=== PATIENT | male | born 1955 | race Two or more races ===

== ENCOUNTER 2019-12-10 23:00 | Inpatient (IN) | payer MEDICAID ==
[~2019-12-10] VITALS: Ht 182.9 cm; Wt 48.5 kg
--- NOTE | 2019-12-10 23:00 | NUR ---
[id number] FROM [facility] C/O ALTERED MENTAL STATUS RECENTLY TESTED NEG FOR COVID 11/28/19; PT TO BED 4, PT ALERT, ANSWERS TO NAME, -SOB, VSS. PENDING ER PROVIDER LISA
--- NOTE | 2019-12-10 23:15 | NUR ---
PT WITH F/C FROM FACILITY. COLLECTED URINE, SENT TO LAB
[2019-12-10] MEDS ORDERED: IV NS 0.9% 500 ML BAG IV ONE (23:30)
[2019-12-10 23:33] LABS: BASOPHILS % (AUTO) 0.1 % (0.0-2.0); EOSINOPHILS % (AUTO) 0.3 % (0.0-6.0); HEMATOCRIT 34 % (39-51); HEMOGLOBIN 10.5 g/dL (13.5-17.5); LYMPHOCYTES # (AUTO) 2.3 /CMM (0.8-4.8); LYMPHOCYTES % (AUTO) 15.4 % (20.0-44.0); MEAN CORPUSCULAR HGB CONC 31 g/dl (31.0-36.0); MEAN CORPUSCULAR VOLUME 93 fL (80-96); MONOCYTES % (AUTO) 6.9 % (2.0-12.0); NEUTROPHILS # (AUTO) 11.4 /CMM (1.8-8.9); NEUTROPHILS % (AUTO) 77.3 % (43.0-81.0); PLATELET COUNT (AUTO) 123 /CMM (150-450); RED BLOOD CELL COUNT(AUTO) 3.61 MIL/uL (4.5-6.0); WHITE BLOOD COUNT (AUTO) 14.8 K/uL (4.3-11.0)
[2019-12-10 23:42] LABS: APPEARANCE,URINE Slightly Cloudy (CLEAR); BILIRUBIN,URINE Negative (NEGATIVE); BLOOD, URINE Large Ery/uL (NEGATIVE); COLOR,URINE Yellow (YELLOW); KETONES,URINE Negative (NEGATIVE); LEUKOCYTE ESTERASE ,URINE Small (NEGATIVE); NITRITE, URINE Positive (NEGATIVE); PROTEIN,URINE 100 mg/dl (NEGATIVE); UGLUCOSE Negative (NEGATIVE); UROBILINOGEN,URINE 0.2 EU/dL (0.2)
[2019-12-10 23:55] LABS: BACTERIA,URINE 3+ /HPF (None Seen); RBC,URINE 21-50 /HPF (0-2); SQUAMOUS EPITHELIAL CELL,UR Few /HPF (None Seen)
[2019-12-10 23:58] LABS: ALANINE AMINOTRANSFERASE 21 U/L (12-78); ALBUMIN 2.5 g/dL (3.4-5.0); ALKALINE PHOSPHATASE 70 U/L (46-116); ASPARTATE AMINOTRANSFERASE 25 U/L (15-37); B-TYPE NATRIURETIC PEPTIDE 480 PG/ML (0-125); BILIRUBIN,DIRECT 0.1 mg/dL (0.0-0.2); BILIRUBIN,TOTAL 0.4 mg/dL (0.2-1.0); CARBON DIOXIDE 25 mmol/L (21-32); CREATININE 2.8 mg/dL (0.6-1.3); GLUCOSE 113 mg/dL (74-106); TOTAL PROTEIN, SERUM 9.4 g/dL (6.4-8.2)
[2019-12-11] LABS: CALCIUM, SERUM 9.5 mg/dL (8.5-10.1)
[2019-12-11] MEDS ORDERED: VANCOMYCIN 1 GM in IV D5W 250 ML IV ONE ×2
[2019-12-11] MEDS ORDERED: IV NS 0.9% 1,000 ML IV ONE
[2019-12-11] MEDS ORDERED: PIPERACILLIN /TAZOBACTAM 3.375 G in IV D5W 50 ML IV ONE ×2
[2019-12-11 00:01] LABS: CHLORIDE 126 mmol/L (98-107); SODIUM SERUM 164 mmol/L (136-145); UREA NITROGEN, BLOOD 100 mg/dL (7-18)
[2019-12-11] MEDS ORDERED: PIPERACILLIN /TAZOBACTAM 3.375 G VIAL IV ONE (00:38)
[2019-12-11] MEDS ORDERED: VANCOMYCIN 1 GM VIAL ONE (00:38)
[2019-12-11] MEDS ORDERED: PANT40TA2 GT (01:33)
[2019-12-11] MEDS ORDERED: ASCO-352 GT (01:33)
[2019-12-11] MEDS ORDERED: LACT-96 GT (01:33)
[2019-12-11] MEDS ORDERED: CARV12.52 GT (01:33)
[2019-12-11] MEDS ORDERED: VALP250S22 GT (01:33)
[2019-12-11] MEDS ORDERED: LOSA50TA39 GT (01:33)
[2019-12-11] MEDS ORDERED: ONDA4TAB5 GT (01:33)
[2019-12-11] MEDS ORDERED: HALO2TAB2 GT (01:33)
[2019-12-11] MEDS ORDERED: MULT9LIQ6 GT (01:33)
--- NOTE | 2019-12-11 02:00 | NUR ---
REPEAT LACTIC RESCHED, PT WAS BENDING ARM; ALL FLUIDS NOT YET ADMINISTERED
[2019-12-11 02:15] VITALS: BP 108/73
--- NOTE | 2019-12-11 02:15 | NUR ---
REPORT GIVEN TO FREDI NORIEGA FOR CARLITA; PT WILL BE TRANSPORTED TO ICU/[facility]
--- NOTE | 2019-12-11 02:15 | NUR ---
OIL HEATERMAN NOTE PATIENT ARRIVED TO UNIT AROUND THIS TIME VIA [employer]. AWAKE, ALERT, CONFUSED, ANXIOUS, NON-VERBAL. BREATHING IS EVEN AND NON LABORED, ON ROOM AIR, SATURATION IS 100%, NO SOB NOTED AT THIS TIME. ON ISOLATION FOR R/O COVID. IV SITE ON LAC GAUGE 20 IS CLEAN, DRY, AND PATENT. ON PACK CATH, URINE IS CLOUDY, EMANI IN COLOR, CONTAINS SEDIMENTS. NOTED SACRAL PRESSURE ULCER. CLEANSED WOUND WITH NS, PAT DRY, AND COVER WITH MEPILEX. NOTED DISCOLORATION ON RIGHT HEEL. BILATERAL HEELS OFFLOADED WITH PILLOWS. NOTED PATIENT WITH SMALL BM UPON INITIAL ASSESSMENT. PEG IS PATENT AND CLAMPED AT THIS TIME. PATIENT IS CONTRACTED ON BLE. VITALS WNL AT THIS TIME. WILL CONTINUE TO MONITOR.
--- NOTE | 2019-12-11 02:22 | NUR ---
PT TRANSPORTED TO [facility]
[2019-12-11] MEDS ORDERED: IV D5/0.45 NACL 1,000 ML IV PRN (03:18)
[2019-12-11] MEDS ORDERED: ONDANSETRON HCL/PF 4 MG/2 ML VIAL IVP PRN (03:30)
[2019-12-11] MEDS ORDERED: Z GUARD REMEDY 2 OZ OINT TP PRN (03:30)
[2019-12-11] MEDS ORDERED: HYDROCODONE/APAP 5/325MG TABLET PO PRN (03:30)
[2019-12-11] MEDS ORDERED: ACETAMINOPHEN 325 MG TABLET PO PRN (03:30)
[2019-12-11] MEDS ORDERED: ZOLPIDEM TARTRATE 5 MG TABLET PO PRN (03:30)
[2019-12-11 04:00] VITALS: BP 109/67
[2019-12-11 04:25] LABS: BASOPHILS % (AUTO) 0.1 % (0.0-2.0); EOSINOPHILS % (AUTO) 0.3 % (0.0-6.0); HEMATOCRIT 30 % (39-51); HEMOGLOBIN 9.4 g/dL (13.5-17.5); LYMPHOCYTES # (AUTO) 1.8 /CMM (0.8-4.8); LYMPHOCYTES % (AUTO) 18.7 % (20.0-44.0); MEAN CORPUSCULAR HGB CONC 31 g/dl (31.0-36.0); MEAN CORPUSCULAR VOLUME 94 fL (80-96); MONOCYTES # (AUTO) 0.7 /CMM (0.1-1.30); MONOCYTES % (AUTO) 7.6 % (2.0-12.0); NEUTROPHILS # (AUTO) 6.8 /CMM (1.8-8.9); NEUTROPHILS % (AUTO) 73.3 % (43.0-81.0); PLATELET COUNT (AUTO) 86 /CMM (150-450); RED BLOOD CELL COUNT(AUTO) 3.24 MIL/uL (4.5-6.0); WHITE BLOOD COUNT (AUTO) 9.3 K/uL (4.3-11.0)
[2019-12-11 04:45] LABS: ALBUMIN 2.2 g/dL (3.4-5.0); BILIRUBIN,TOTAL 0.4 mg/dL (0.2-1.0); CALCIUM, SERUM 8.9 mg/dL (8.5-10.1); CREATININE 2.4 mg/dL (0.6-1.3); MAGNESIUM 2.5 mg/dL (1.8-2.4); PHOSPHORUS 2.9 mg/dL (2.5-4.9); POTASSIUM 3.8 mmol/L (3.5-5.1); THYROID STIMULATING HORMONE 0.879 uIU/mL (0.358-3.74)
[2019-12-11 05:28] LABS: EOSINOPHILS % (MANUAL) 1 % (0-4); LYMPHOCYTES % (MANUAL) 13 % (16-48); MONOCYTES % (MANUAL) 3 % (0-11.0); NEUTROPHILS % (MANUAL) 83 (42-76)
[2019-12-11] MEDS ORDERED: JEVITY 1.2 CAL 1,000 ML BOTTLE GT PRN (05:30)
--- NOTE | 2019-12-11 07:23 | NUR ---
SAMPLE PULLER NOTE PATIENT REMAINED STABLE THROUGHOUT THE NIGHT. NO SIGNIFICANT CHANGES NOTED. PATIENT TRIED TO GET OUT OF BED. SAFETY PRECAUTIONS IMPLEMENTED. SOFT WRIST RESTRAINTS OBTAINED. BED ALARM TURNED ON. PATIENT IS KEPT CLEAN, DRY, AND COMFORTABLE. ENDORSED TO AM SHIFT RN FOR CONTINUATION OF CARE.
[2019-12-11 08:00] VITALS: BP 99/56
[2019-12-11] MEDS: PANTOPRAZOLE 40 MG TABLET.DR PO SCH (08:04)
[2019-12-11] MEDS: ASCORBIC ACID 500 MG TABLET GT SCH (08:06)
[2019-12-11] MEDS: CARVEDILOL 12.5 MG TABLET GT SCH ×2 (08:06→17:00)
[2019-12-11 08:11] LABS: IRON, SERUM 25 ug/dl (50-175); TOTAL IRON BINDING CAPACITY 120 ug/dl (250-450)
--- NOTE | 2019-12-11 08:25 | NUR ---
WOUND CARE CONSULT: REVIEWED CHART, NURSING DOCUMENTATION AND PHOTOS WHICH INDICATE FULL THICKNESS SACRAL ULCER AND RT FOOT INTACT DEEP TISSUE INJURY, PRESENT ON ADMISSION, RECOMMEND SURGICAL AND DPM CONSULTS. DR WASHINGTON AND DR TAMAYO NOTIFIED OF CONSULT REQUEST. RECOMMENDATIONS MADE FOR SKIN PROTECTION. DISCUSSED WITH NURSING STAFF. PT IS ON [place] ISOFLEX LOW AIRLOSS BED. MD IN AGREEMENT WITH PLAN OF CARE.
[2019-12-11 08:30] LABS: FERRITIN 847 ng/mL (8-388)
[2019-12-11] MEDS ORDERED: LOSARTAN POTASSIUM 50 MG TABLET GT SCH (09:00)
--- NOTE | 2019-12-11 09:39 | NUR ---
RN OPENING NOTES: RECEIVED PT IN BED AWAKE A/OX2, CONFUSED, CAN GET AGITATED WHEN IN PAIN. PT ON RA TOLERATING WELL. PT ON PACK NORMAL U/O, GTUBE FEEDING 20 GOAL IS 50 WILL INCREASE I GO. SAFETY MEASURES MAINTAINED CALL LIGHT WITHIN REACH WILL CONTINUE TO MONITOR.
[2019-12-11] MEDS: IV NS 0.9% 1,000 ML IV PRN ×2 (09:51→20:37)
[2019-12-11] MEDS: PIPERACILLIN /TAZOBACTAM 3.375 G in IV D5W 100 ML IV SCH ×2 (09:57→16:58)
[2019-12-11 12:00] VITALS: BP 98/53
[2019-12-11 13:45] LABS: CALCIUM, SERUM 8.7 mg/dL (8.5-10.1); POTASSIUM 3.6 mmol/L (3.5-5.1)
--- NOTE | 2019-12-11 13:55 | NUR ---
RN NOTES; PT WAS TAKEN TO CT SCAN, TOLERATED WELL, NO CHANGES IN VITALS DURING THE PROCEDURE. WILL CONTINUE TO MONITOR.
--- NOTE | 2019-12-11 13:58 | NUR ---
RN NOTES: LAB CALLED FOR CRITICAL VALUES FOR SODIUM 161, CHLORIDE 126, BASED ON THE LAB VALUES FROM YESTR[facility]AY NUMBERS ARE TRENDING DOWN.
[2019-12-11 16:00] VITALS: BP 105/53
[2019-12-11] MEDS: HYDROGEL DRESSING 90 GM TUBE TP SCH (18:50)
--- NOTE | 2019-12-11 18:55 | NUR ---
RN CLOSING NOTES: PT IN BED SLEEPING, NO ACUTE CHANGES DURING THE SHIFT. PTS BLOOD PRESSURE WAS LOW BP MEDICATION WAS NOT GIVEN. NO SIGNS OF RESPIRATORY DISTRESS, DIFFICULTY BREATHING OR PAIN. IV INTACT FLUSHED WELL. WAS ON RA ALL DAY CHANGED TO NC 2L AT 1800 O2 WAS GOING LOW. PACK CATH WAS CHANGED TO A NEW ONE. PATIENTS SAFETY MEASURES MAINTAINED CALL LIGHT WITHIN REACH WILL ENDORSE TO PM SHIFT NURSE.
--- NOTE | 2019-12-11 19:10 | NUR ---
RN OPENING NOTE RECEIVED PATIENT IN BED SLEEPING,ALERT DISORIENTED,NONVERBAL FULL CODE ON TELE MONITORING R/O FOR COVID STILL PENDING,ON DROPLET/CONTACT ISOLATION,ON 2L NASAL CANNULA, 100% HR SR 61 IV SITE IS ON LEFT AC INTACT PATENT,200CC/HR NS RUNNING,ON G-TUBE FEEDING JEVITY 1.2 30CC/HR GOAL IS 50CC/HR PLACEMENT DONE NO RESIDUAL,ON PACK CATHETER, URINE DRAINING YELLOW CLEAR,ON RESTRAIN BILATERAL WRIST,HEAD OF BED ELEVATED ALL THE TIME,IMPLEMENT SAFETY MEASURE,CONTINUE TO MONITOR
[2019-12-11 20:00] VITALS: BP 100/59
[2019-12-11] MEDS: VALPROIC ACID 250 MG/5 ML UDC GT SCH (21:19)
[2019-12-12] VITALS: BP 130/70
[2019-12-12] MEDS: PIPERACILLIN /TAZOBACTAM 3.375 G in IV D5W 100 ML IV SCH ×3 (00:34→17:47)
[2019-12-12] MEDS ORDERED: VANCOMYCIN 0.75 GM in IV D5W 250 ML IV SCH (01:00)
[2019-12-12] MEDS: IV NS 0.9% 1,000 ML IV PRN ×4 (02:47→21:02)
--- NOTE | 2019-12-12 03:00 | NUR ---
RN NOTE G-TUBE FEEDING RATE INCREASED FROM 30CC/HR TO 35CC/HR TOLERATED THE GOAL IS 50CC/HR CONTINUE TO MONITOR.
[2019-12-12 04:00] VITALS: BP 106/68
[2019-12-12 04:36] LABS: BASOPHILS % (AUTO) 0.1 % (0.0-2.0); EOSINOPHILS % (AUTO) 1.6 % (0.0-6.0); HEMATOCRIT 25 % (39-51); HEMOGLOBIN 7.8 g/dL (13.5-17.5); LYMPHOCYTES # (AUTO) 1.4 /CMM (0.8-4.8); LYMPHOCYTES % (AUTO) 23.2 % (20.0-44.0); MEAN CORPUSCULAR HGB CONC 32 g/dl (31.0-36.0); MEAN CORPUSCULAR VOLUME 93 fL (80-96); MONOCYTES # (AUTO) 0.5 /CMM (0.1-1.30); NEUTROPHILS % (AUTO) 67.1 % (43.0-81.0); PLATELET COUNT (AUTO) 52 /CMM (150-450); RED BLOOD CELL COUNT(AUTO) 2.64 MIL/uL (4.5-6.0)
[2019-12-12 05:08] LABS: ALBUMIN 1.9 g/dL (3.4-5.0); BILIRUBIN,TOTAL 0.3 mg/dL (0.2-1.0); CALCIUM, SERUM 8.3 mg/dL (8.5-10.1); CREATININE 1.8 mg/dL (0.6-1.3); PHOSPHORUS 2.3 mg/dL (2.5-4.9); POTASSIUM 3.9 mmol/L (3.5-5.1); TOTAL PROTEIN, SERUM 6.9 g/dL (6.4-8.2)
[2019-12-12 05:26] LABS: BAND % (MANUAL) 2 % (0.0-5.0); EOSINOPHILS % (MANUAL) 1 % (0-4); LYMPHOCYTES % (MANUAL) 34 % (16-48); MONOCYTES % (MANUAL) 1 % (0-11.0); NEUTROPHILS % (MANUAL) 62 (42-76)
--- NOTE | 2019-12-12 05:27 | NUR ---
RN NOTE REPORTED BY LAB PATIENT SODIUM IS 164 CRITICAL,THIS IS EXPECTED PATIENT 12/10/19 WAS 164 AND AT 12/11/19 AT 1200 WAS 165,CONTINUE TO MONITOR
--- NOTE | 2019-12-12 06:53 | NUR ---
RN CLOSING NOTE PATIENT REMAINS ALERT DISORIENTED,CONFUSED,FULL CODE,ON TELE,R/O FOR COVID STILL PENDING,ON DROPLET/CONTACT ISOLATION,ON 2L/MIN OXYGEN VIA NASAL CANNULA O2:100%,ON G-TUBE FEEDING,JEVITY 1.2 35CC/HR AND GOAL IS 50CC/HR.NO RESIDUAL,IV SITE IS ON LEFT AC PATENT,INTACT, 200 CC/HR NS RUNNING,ON PACK CATHETER,URINE DRAINING YELLOW CLEAR,HEAD OF BED ELEVATED,NO SOB NOT ACUTE DISTRESS NOTED,ON RESTRAIN BILATERAL WRIST,ALL DUE MEDS GIVEN MD ORDERED,KEPT CLEAN AND DRY ALL THE TIME,ALL NEEDS MET,ENDORSE NEXT COMING SHIFT FOR CONTINUATION OF CARE.
--- NOTE | 2019-12-12 07:00 | NUR ---
RECEIVABLE MANAGER OPENING RECEIVED PT ASLEEP BUT EASILY AROUSABLE. A/O X 0. NC 2L WITH 100% SATURATION AT THIS TIME. NO SIGNS OF ACUTE RESPIRATORY DISTRESS. NO PAIN. WITH PACK CATH DRAINING INTO YELLOWISH URINE. ON JEVITY 1.2 30CC/HR TOLERATING WELL. PT HAS MINIMAL RESIDUAL. PT HAS SACRAL WOUND STAGE 4. MEPILEX PLACED, REPOSITION AND TURNED Q2. LEFT AC # 20, PATENT AND FLUSHED. NS 200ML/HR. BED LOCKED LOWEST POSITION, CALL LIGHT WITHIN REACH. ALL SAFETY MEASURES IMPLEMENTED. 2X RAILS UP
[2019-12-12 08:00] VITALS: BP 97/53
[2019-12-12] MEDS: CARVEDILOL 12.5 MG TABLET GT SCH ×2 (08:18→16:09)
[2019-12-12] MEDS: ASCORBIC ACID 500 MG TABLET GT SCH (08:19)
[2019-12-12] MEDS: PANTOPRAZOLE 40 MG TABLET.DR PO SCH (08:19)
[2019-12-12] MEDS: HYDROGEL DRESSING 90 GM TUBE TP SCH (10:58)
--- NOTE | 2019-12-12 11:00 | NUR ---
POLO COACH STOOL SAMPLE/URINE COLLECTED. SENT TO LAB
[2019-12-12 11:04] LABS: APPEARANCE,URINE CLOUDY (CLEAR); BILIRUBIN,URINE NEGATIVE (NEGATIVE); BLOOD, URINE LARGE Ery/uL (NEGATIVE); COLOR,URINE YELLOW (YELLOW); KETONES,URINE NEGATIVE (NEGATIVE); LEUKOCYTE ESTERASE ,URINE SMALL (NEGATIVE); NITRITE, URINE NEGATIVE (NEGATIVE); PH,URINE 5.5 (5.0-8.0); PROTEIN,URINE TRACE mg/dl (NEGATIVE); UGLUCOSE NEGATIVE (NEGATIVE); UROBILINOGEN,URINE 0.2 EU/dL (0.2)
[2019-12-12 11:14] LABS: CREATININE, URINE 55.4 MG/DL (30.0-125.0); URINE TOTAL PROTEIN 72.6 mg/dL (0-11.9)
[2019-12-12 11:54] LABS: BACTERIA,URINE Few /HPF (None Seen); MUCUS,URINE Few /LPF (None Seen); SQUAMOUS EPITHELIAL CELL,UR Few /HPF (None Seen); URIC ACID CRYSTALS,URINE Few /HPF (None Seen); YEAST,URINE None Seen /HPF (None Seen)
[2019-12-12 11:57] LABS: OCCULT BLOOD STOOL POSITIVE (NEGATIVE)
[2019-12-12 12:00] VITALS: BP 117/83
[2019-12-12] MEDS ORDERED: NEUTRA PHOS 1 POWD.PACKET GT ONE (12:00)
[2019-12-12 12:05] LABS: D-DIMER 3.45 mg/L(FEU (0.17-0.50)
[2019-12-12 12:26] LABS: EOSINOPHIL,URINE None Seen
[2019-12-12] MEDS: JEVITY 1.2 CAL 1,000 ML BOTTLE GT PRN (15:55)
[2019-12-12 16:00] VITALS: BP 117/83
--- NOTE | 2019-12-12 16:00 | NUR ---
CHIN STRAP SEWER COREG NOT GIVE DUE TO BP. 88/50 HR 77.
--- NOTE | 2019-12-12 18:00 | NUR ---
SPEECH THERAPY TEACHER COVID RESULTS PENDING TILL NEXT WEEK
--- NOTE | 2019-12-12 18:15 | NUR ---
HAND BINDER STRIPPER RADIOLOGIST TALKED TO MD FOR SURGERY CONSULT
--- NOTE | 2019-12-12 18:29 | NUR ---
LABORER DRIVER CLOSING NOTES NO SIGNIFICANT CHANGES AT THIS TIME. PT REMAINS STABLE. NO ACUTE RESPIRATORY DISTRESS. WILL ENDORSE TO ONCOMING SHIFT FOR CARLITA
[2019-12-12 18:32] LABS: HEMOGLOBIN 7.3 g/dL (13.5-17.5)
[2019-12-12] MEDS ORDERED: MEROPENEM 500 MG in IV NS 0.9% 50 ML IV ONE (19:00)
--- NOTE | 2019-12-12 19:00 | NUR ---
RN OPENING NOTE RECEIVED PATIENT IN BED RESTING,CONFUSED,DISORIENTED,OPEN EYES ON TELE,FULL CODE R/O FOR COVID STILL PENDING,MONITORING DROPLET/CONTACT ISOLATION,ON 2L OXYGEN VIA NASAL CANNULA, O2:100% IV SITE IS ON LEFT AC INTACT PATENT ON IV HYDRATION 200CC/HR NORMAL SALINE,ON G-TUBE FEEDING, JEVITY 1.2 45 CC/HR, PLACEMENT DONE,NO RESIDUAL,ON PACK CHERY,URINE DRAINING YELLOW/CLEAR,IMPLEMENT SAFETY MEASURE,HEAD OF BED ELEVATED,CONTINUE TO MONITOR.
--- NOTE | 2019-12-12 19:12 | NUR ---
RN NOTE REPORTED BY LAB LACTIC ACID 2.3 IS HIGH COMPARE THE DAY BEFORE IT WAS 3.8 DECREASED,CONTINUE TO MONITOR.
[2019-12-12 20:00] VITALS: BP 107/67
[2019-12-12] MEDS: DOXYCYCLINE HYCLATE (100 MG) 100 MG TABLET PO SCH (20:26)
[2019-12-12] MEDS: VALPROIC ACID 250 MG/5 ML UDC GT SCH (21:04)
[2019-12-12 21:38] LABS: BILIRUBIN,DIRECT 0.1 mg/dL (0.0-0.2)
[2019-12-13] VITALS: BP 102/62
[2019-12-13] MEDS: IV NS 0.9% 1,000 ML IV PRN ×3 (02:16→08:08)
[2019-12-13 04:00] VITALS: BP 103/56
[2019-12-13 04:59] LABS: BASOPHILS % (AUTO) 0.1 % (0.0-2.0); EOSINOPHILS % (AUTO) 2.7 % (0.0-6.0); HEMATOCRIT 22 % (39-51); HEMOGLOBIN 7.1 g/dL (13.5-17.5); LYMPHOCYTES # (AUTO) 1.1 /CMM (0.8-4.8); LYMPHOCYTES % (AUTO) 28.9 % (20.0-44.0); MEAN CORPUSCULAR HGB CONC 32 g/dl (31.0-36.0); MEAN CORPUSCULAR VOLUME 92 fL (80-96); MONOCYTES # (AUTO) 0.3 /CMM (0.1-1.30); MONOCYTES % (AUTO) 7.5 % (2.0-12.0); NEUTROPHILS # (AUTO) 2.2 /CMM (1.8-8.9); NEUTROPHILS % (AUTO) 60.8 % (43.0-81.0); RED BLOOD CELL COUNT(AUTO) 2.41 MIL/uL (4.5-6.0); WHITE BLOOD COUNT (AUTO) 3.7 K/uL (4.3-11.0)
--- NOTE | 2019-12-13 05:00 | NUR ---
RN NOTE RECEIVED CALLED FROM LAB WITH CRITICAL LAB VALUE PLATETE 40L WHICH IS EXPECTED GETTING NS 200CC/HR CONTINUE TO MONITOR
[2019-12-13 05:21] LABS: CALCIUM, SERUM 7.8 mg/dL (8.5-10.1); POTASSIUM 3.2 mmol/L (3.5-5.1)
[2019-12-13 05:27] LABS: PLATELET COUNT (AUTO) 40 /CMM (150-450)
[2019-12-13 05:58] LABS: CREATININE 1.4 mg/dL (0.6-1.3)
--- NOTE | 2019-12-13 06:02 | NUR ---
RN NOTE RECEIVED A CALL FROM LAB WITH CRITICAL LAB VALUE SODIUM 158 COMPARER THE DAY BEFORE 164 IMPROVING AND DECREASED CONTINUE TO MONITOR
[2019-12-13 06:38] LABS: BAND % (MANUAL) 2 % (0.0-5.0); EOSINOPHILS % (MANUAL) 4 % (0-4); LYMPHOCYTES % (MANUAL) 32 % (16-48); MONOCYTES % (MANUAL) 3 % (0-11.0); NEUTROPHILS % (MANUAL) 59 (42-76)
--- NOTE | 2019-12-13 07:00 | NUR ---
EGG GATHERER OPENING RECEIVED PT ASLEEP BUT EASILY AROUSABLE . A/O X 0. NC 2L WITH 100% SATURATION AT THIS TIME. NO SIGNS OF ACUTE RESPIRATORY DISTRESS. NO PAIN. WITH PACK CATH DRAINING INTO YELLOWISH URINE, . ON JEVITY 1.2 45CC/HR TOLERATING WELL. PT HAS MINIMAL RESIDUAL. PT HAS SACRAL WOUND STAGE 4. MEPILEX PLACED, REPOSITION AND TURNED Q2. LEFT AC # 20, PATENT AND FLUSHED. NS 200ML/HR. BED LOCKED LOWEST POSITION, CALL LIGHT WITHIN REACH. ALL SAFETY MEASURES IMPLEMENTED. 2X RAILS UP
--- NOTE | 2019-12-13 07:12 | NUR ---
RN CLOSING NOTE PATIENT REMAINS ALERT CONFUSED,R/O FOR COVID,FULL CODE,MONITORING FOR DROPLET/CONTACT ISOLATION,NO SOB NOT ACUTE DISTRESS NOTE,ON 2L OXYGEN O2:100% ON G-TUBE FEEDING JEVITY 1.2 45CC/HR NO RESIDUAL,IV SITE IS ON LEFT AC INTACT,PATENT,200CC/HR NORMAL SALINE,ALL DUE MEDS GIVEN MD ORDERED,HEAD OF BED ELEVATED,IMPLEMENTED SAFETY MEASURE, ENDORSE NEXT SHIFT FOR CONTINUATION OF CARE.
[2019-12-13 08:00] VITALS: BP 100/64
[2019-12-13] MEDS: MEROPENEM 500 MG in IV NS 0.9% 100 ML IV SCH ×2 (08:07→19:53)
[2019-12-13] MEDS: PANTOPRAZOLE 40 MG TABLET.DR PO SCH (08:40)
[2019-12-13] MEDS: ASCORBIC ACID 500 MG TABLET GT SCH (08:41)
[2019-12-13] MEDS: CARVEDILOL 12.5 MG TABLET GT SCH ×2 (08:41→18:15)
[2019-12-13] MEDS: DOXYCYCLINE HYCLATE (100 MG) 100 MG TABLET PO SCH ×2 (08:41→21:12)
[2019-12-13] MEDS: HYDROGEL DRESSING 90 GM TUBE TP SCH (08:42)
[2019-12-13] MEDS ORDERED: POTASSIUM PHOSPHATE MM 15 MMOL in IV NS 0.9% 250 ML IV SCH (09:30)
[2019-12-13] MEDS ORDERED: POTASSIUM CHLORIDE 20 MEQ POWDER PACKET NG SCH (10:00)
[2019-12-13] MEDS ORDERED: DIATR MEGLU/DIATRIZOATE SODIUM 30 ML BOTTLE (GASTROGRAPHIN) ONE (10:50)
[2019-12-13] MEDS: POTASSIUM PHOSPHATE MM 7.5 MMOL in IV NS 0.9% 100 ML IV SCH ×2 (10:51→13:44)
[2019-12-13 11:06] LABS: PTH, INTACT 29 pg/mL (15-65)
[2019-12-13 12:00] VITALS: BP 117/62
[2019-12-13] MEDS: IV 1/2NS 1000 ML 1,000 ML IV PRN (13:42)
[2019-12-13 16:00] VITALS: BP 143/83
[2019-12-13] MEDS ORDERED: ACETAMINOPHEN 325 MG TABLET PO PRN (18:00)
[2019-12-13] MEDS ORDERED: PHYTONADIONE INJ 10 MG/1 ML AMPUL SQ ONE (18:00)
[2019-12-13] MEDS ORDERED: diphenhydrAMINE HCL 50 MG/ML VIAL IV PRN (18:00)
--- NOTE | 2019-12-13 18:00 | NUR ---
IOS ARCHITECT TALKED TO DR APONTE - BLOOD PRODUCT ORDERS PENDING NEED CONSENT UNABLE TO REACH FAMILY AT THIS TIME .
--- NOTE | 2019-12-13 18:35 | NUR ---
CANCER CENTER DIRECTOR OPENING RECEIVED PT ASLEEP BUT EASILY AROUSABLE . A/O X 0. NC 2L WITH 100% SATURATION AT THIS TIME. NO SIGNS OF ACUTE RESPIRATORY DISTRESS. NO PAIN. WITH PACK CATH DRAINING INTO YELLOWISH URINE, . ON JEVITY 1.2 45CC/HR TOLERATING WELL. PT HAS MINIMAL RESIDUAL. PT HAS SACRAL WOUND STAGE 4. MEPILEX PLACED, REPOSITION AND TURNED Q2. LEFT AC # 20, PATENT AND FLUSHED. NS 200ML/HR. BED LOCKED LOWEST POSITION, CALL LIGHT WITHIN REACH. ALL SAFETY MEASURES IMPLEMENTED. 2X RAILS UP Addendum: 12/13/19 at 1838 by MALATHI KENYON RN WRONG TIME
--- NOTE | 2019-12-13 18:37 | NUR ---
SHOULDER PUNCHER CLOSING RECEIVED PT ASLEEP BUT EASILY AROUSABLE . A/O X 0. NC 2L WITH 100% SATURATION AT THIS TIME. NO SIGNS OF ACUTE RESPIRATORY DISTRESS. NO PAIN. WITH PACK CATH DRAINING INTO YELLOWISH URINE, PATIENT WAS KICKICK HIS PACK AND PULLED ON IT. BLOOD CLOTS IN THE PACK. ON JEVITY 1.2 45CC/HR TOLERATING WELL. PT HAS MINIMAL RESIDUAL. PT HAS SACRAL WOUND STAGE 4. MEPILEX PLACED, REPOSITION AND TURNED Q2. LEFT AC # 20, PATENT AND FLUSHED. NS 1/2 75ML/HR. BED LOCKED LOWEST POSITION, CALL LIGHT WITHIN REACH. ALL SAFETY MEASURES IMPLEMENTED. 2X RAILS UP
[2019-12-13 19:01] LABS: HEMOGLOBIN 7.6 g/dL (13.5-17.5)
--- NOTE | 2019-12-13 19:10 | NUR ---
RN CLOSING NOTE RECEIVED PATIENT IN BED OPEN EYES ALERT CONFUSED,FULLCODE,R/O FOR COVID STILL PENDING MONITORING FOR DROPLET/CONTACT ISOLATION,ON 2L OXYGEN O2:100% NO SOB NOT ACUTE DISTRESS NOTED,IV SITE IS ON LEFT AC INTACT PATENT 75CC/HR NORMAL SALINE RUNNING,ON PACK CATHETER,BLOOD CLOT IN PACK TUBE BECAUSE PATIENT KICKED,ON G-TUBE FEEDING PLACEMENT DONE NO RESIDUAL,JEVITY 1.2 45CC/HR HEAD OF BED ELEVATED,IMPLEMENT SAFETY MEASURE,CONTINUE TO MONITOR, Addendum: 12/13/19 at 2108 by CHENG MCGHEE RN IV 1/2 NS NORMAL SALINE 75CC/HR.
[2019-12-13] MEDS: JEVITY 1.2 CAL 1,000 ML BOTTLE GT PRN (19:39)
[2019-12-13 20:00] VITALS: BP 114/56
[2019-12-13] MEDS: VALPROIC ACID 250 MG/5 ML UDC GT SCH (21:12)
[2019-12-14] VITALS (7 sets, daily range): BP systolic 100–117; BP diastolic 48–73
[2019-12-14 04:33] LABS: BASOPHILS % (AUTO) 0.1 % (0.0-2.0); EOSINOPHILS % (AUTO) 2.4 % (0.0-6.0); HEMATOCRIT 26 % (39-51); HEMOGLOBIN 8.3 g/dL (13.5-17.5); LYMPHOCYTES # (AUTO) 1.5 /CMM (0.8-4.8); MEAN CORPUSCULAR HGB CONC 32 g/dl (31.0-36.0); MEAN CORPUSCULAR VOLUME 91 fL (80-96); MONOCYTES # (AUTO) 0.4 /CMM (0.1-1.30); MONOCYTES % (AUTO) 6.4 % (2.0-12.0); NEUTROPHILS # (AUTO) 3.6 /CMM (1.8-8.9); NEUTROPHILS % (AUTO) 64.1 % (43.0-81.0); RED BLOOD CELL COUNT(AUTO) 2.83 MIL/uL (4.5-6.0); WHITE BLOOD COUNT (AUTO) 5.6 K/uL (4.3-11.0)
[2019-12-14 04:47] LABS: PLATELET COUNT (AUTO) 62 /CMM (150-450)
[2019-12-14 04:52] LABS: BILIRUBIN,TOTAL 0.2 mg/dL (0.2-1.0); CALCIUM, SERUM 8.1 mg/dL (8.5-10.1); CREATININE 1.1 mg/dL (0.6-1.3); MAGNESIUM 1.6 mg/dL (1.8-2.4); PHOSPHORUS 2.4 mg/dL (2.5-4.9); POTASSIUM 3.8 mmol/L (3.5-5.1); TOTAL PROTEIN, SERUM 7.2 g/dL (6.4-8.2)
[2019-12-14] MEDS: IV 1/2NS 1000 ML 1,000 ML IV PRN (06:12)
--- NOTE | 2019-12-14 07:15 | NUR ---
RN OPENING NOTE: Received patient in bed. Awake, alert and confused. Isolation precaution to R/O Covid-[address] On cont o2 via NC @ 2lpm being tolerated well. No SOB and not in respiratory distress. Tele monitor showing sinus rhythm. No pain noted on patient. IV site clean, dry, patent and intact. IV infusion of 1/2 NS @ 75mls/hr running and being tolerated well. Gtube patent and in place, feeding of Jevity 1.2 @ 45mls/hr being tolerated well. Call light in reach. Bed locked, low and at semi-mendoza's position. Side rails up x3. Safety ensured and observed. Will continue to monitor. Addendum: 12/14/19 at 1720 by PATRICIA SILVESTRE RN Nickerson catheter patent and in place, draining duke/yellow urine.
--- NOTE | 2019-12-14 07:33 | NUR ---
RN CLOSING NOTE PATIENT REMAINS ALERT CONFUSED FULL CODE R/O FOR COVID NO SOB NOT ACUTE DISTRESS NOTED ALL DUE MEDS GIVEN MD ORDERED,ON 2L OXYGEN O2:100% G-TUBE FEEDING JEVITY 1.2 45 CC/HR IV SITE IS ON LEFT AC INTACT PATENT 1/2 NS IV HYDRATION RUNNING, 75CC/HR, KEPT CLEAN AND DRY ALL THE TIME,KEPT COMFORTABLE,HEAD OF BED ELEVATED ALL THE TIME,ENDORSE NEXT COMING SHIFT FOR CONTINUATION OF CARE.
[2019-12-14 07:56] LABS: D-DIMER 2.97 mg/L(FEU (0.17-0.50)
[2019-12-14] MEDS: PANTOPRAZOLE 40 MG TABLET.DR PO SCH (08:00)
[2019-12-14] MEDS: ASCORBIC ACID 500 MG TABLET GT SCH (09:59)
[2019-12-14] MEDS: DOXYCYCLINE HYCLATE (100 MG) 100 MG TABLET PO SCH ×2 (09:59→21:16)
[2019-12-14] MEDS: MEROPENEM 500 MG in IV NS 0.9% 100 ML IV SCH ×2 (09:59→19:55)
[2019-12-14] MEDS: CARVEDILOL 12.5 MG TABLET GT SCH ×2 (09:59→16:59)
[2019-12-14] MEDS: HYDROGEL DRESSING 90 GM TUBE TP SCH (10:00)
[2019-12-14] MEDS ORDERED: NEUTRA PHOS 1 POWD.PACKET GT ONE (10:00)
--- NOTE | 2019-12-14 10:00 | NUR ---
RN NOTE: Relayed to Sunny Hobbs about family's request to speak to provider and get an update on his status. Awaiting response
[2019-12-14] MEDS: Magnesium 1GM/D5W 100ML PREMIX 100 ML IV SCH ×2 (11:15→13:53)
--- NOTE | 2019-12-14 18:00 | NUR ---
rn note: Patient transferred to room 313. Endorsement received by FREDI Cabrera
--- NOTE | 2019-12-14 19:17 | NUR ---
CUTTER DOWN NOTES PT ARRIVED IN THE UNIT AT 1830, TRANSFER FORM [facility] VIA BED. VS TAKEN AND STABLE. PT REMAINS IN BED, AWAKE, CONFUSED. PT ON SUPPLEMENTARY OXYGEN AT 2L VIA NC, WITH NO ACUTE RESPIRATORY DISTRESS NOTED. PT NOT EXHIBITING PAIN AT THIS TIME. ON TELEMONITORING SR 80. IVF NS AT 75ML/HR TO LAC, INTACT AND FLUID INFUSING WELL. ALL NEEDS AND CARE ATTENDED. PT KEPT COMFORTABLE IN BED. CALL LIGHT KEPT WITHIN REACH. PT'S BED IN LOWEST, LOCKED POSITION WITH SRX3. WILL ENDORSE TO INCOMING NIGHT NURSE FOR CARLITA.
--- NOTE | 2019-12-14 19:26 | NUR ---
GASTROENTEROLOGY PROFESSOR OPENING NOTES PATIENT RECEIVED RESTING IN BED COMFORTABLY; PATIENT IS CONFUSED; BREATHING EVEN AND UNLABORED; NO SOB NOTED; TOLERATING 2LPM VIA NC WELL; NO DISTRESS NOTED; TELE MONITOR READS SINUS RHYTHM 66BPM; PATIENT HAS GTUBE IN PLACE; PER AM SHIFT, ICU TRANSFERRED PATIENT WITH NO FEEDING PUMP/IV PUMP; MORNING SHIFT SPOKE WITH ICU AND PER ICU, THEY WILL BRING UP THE PUMP AFTER CHANGE OF SHIFT; PATIENT HAS BILATERAL SOFT WRIST RESTRAINTS, NO EVIDENCE OF SKIN BREAK DOWN NOTED; SAFETY PRECAUTIONS IMPLEMENTED; BED LOCKED IN LOW POSITION; SIDE RAILSX2; WILL CONT TO MONITOR
[2019-12-14] MEDS: JEVITY 1.2 CAL 1,000 ML BOTTLE GT PRN (19:56)
--- NOTE | 2019-12-14 20:35 | NUR ---
HEAD GOLF PROFESSIONAL NOTES SPOKE WITH KIYA, FROM LAB REGARDING PLATELET ORDER; PER LAB, PLATELET TRANSFUSION ORDERED 12/12 AND SHOULD HAVE ALREADY BEEN GIVEN IN ICU, AND NO ONE HAS PICKED IT UP; CONFIRMING WITH CHARGE NURSE; WILL TOW BOAT CAPTAIN PLATELET ORDER AND TRANSFUSE ORDERED; WILL CONT TO MONITOR
--- NOTE | 2019-12-14 21:06 | NUR ---
OCCUPATIONAL THERAPY SUPERVISOR NOTES SPOKE WITH DR. DUCKWORTH REGARDING PLATELET TRANSFUSION, PER MD, NO NEED FOR PLATELET TRANSFUSION; CHARGE NURSE AWARE; LAB MADE AWARE; WILL CONT TO MONITOR
[2019-12-14] MEDS: VALPROIC ACID 250 MG/5 ML UDC GT SCH (21:17)
[2019-12-15] VITALS: BP_SYST 106; BP_SYST 147; BP_DIAS 64; BP_DIAS 82
[2019-12-15 04:00] VITALS: BP 108/54
--- NOTE | 2019-12-15 06:45 | NUR ---
LONGITUDINAL FLOAT OPERATOR CLOSING NOTES PATIENT RESTING IN BED COMFORTABLY; A/OX1, CONFUSED BUT OPENS EYES AND RESPONDS TO NAME; BREATHING EVEN AND UNLABORED; TOLERATING 2LPM VIA NC WELL @ 100%; NO SOB NOTED; TELE MONITOR READS SINUS RHYTHM 60 - 70S BPM; BILATERAL SOFT WRIST RESTRAINTS INTACT, NO EVIDENCE OF SKIN BREAKDOWN NOTED; LAC # 24, INTACT AND PATENT, INFUSING NS @ 75ML/HR; TOLERATING IVF WELL; G TUBE INPLACE, FEEDING INFUSING JEVITY 1.2 @ 45ML/HR; PATIENT TOLERATING GTUBE FEEDING WELL, WITH LOW RESIDUALS; PACK INPLACE WITH YELLOW OUT PUT OF 1200 CC THROUGHOUT SHIFT; ALL NEEDS RENDERED; SAFETY PRECAUTIONS IMPLEMENTED; BED LOCKED IN LOW POSITION; SIDE RAILSX3, WILL ENDORSE CARLITA TO ONCOMING SHIFT Addendum: 12/15/19 at 0646 by JESSICA SCHULZ RN R AC #22 INTACT AND PATENT, FLUSHING WELL; NO S/S OF REDNESS OR INFILTRATION NOTED;
--- NOTE | 2019-12-15 07:30 | NUR ---
SOLE CONDITIONER NOTES PT IN BED, ASLEEP, EASY TO AROUSE, NO SIGN OF PAIN OR DISTRESS, GT FEEDING INFUSING WELL, TOLERATING WELL, KEPT WARM AND COMFORTABLE IN BED.
[2019-12-15 08:00] VITALS: BP 98/43
[2019-12-15 08:05] LABS: BASOPHILS % (AUTO) 0.2 % (0.0-2.0); EOSINOPHILS % (AUTO) 2.9 % (0.0-6.0); HEMATOCRIT 23 % (39-51); HEMOGLOBIN 7.5 g/dL (13.5-17.5); LYMPHOCYTES # (AUTO) 1.3 /CMM (0.8-4.8); LYMPHOCYTES % (AUTO) 27.9 % (20.0-44.0); MEAN CORPUSCULAR HGB CONC 33 g/dl (31.0-36.0); MEAN CORPUSCULAR VOLUME 89 fL (80-96); MONOCYTES # (AUTO) 0.3 /CMM (0.1-1.30); MONOCYTES % (AUTO) 5.6 % (2.0-12.0); NEUTROPHILS % (AUTO) 63.4 % (43.0-81.0); PLATELET COUNT (AUTO) 56 /CMM (150-450); RED BLOOD CELL COUNT(AUTO) 2.56 MIL/uL (4.5-6.0); WHITE BLOOD COUNT (AUTO) 4.8 K/uL (4.3-11.0)
[2019-12-15] MEDS: DOXYCYCLINE HYCLATE (100 MG) 100 MG TABLET PO SCH ×2 (08:51→22:49)
[2019-12-15] MEDS: MEROPENEM 500 MG in IV NS 0.9% 100 ML IV SCH ×2 (08:51→20:02)
[2019-12-15] MEDS: ASCORBIC ACID 500 MG TABLET GT SCH (08:51)
[2019-12-15] MEDS: PANTOPRAZOLE 40 MG TABLET.DR PO SCH (08:51)
[2019-12-15] MEDS: HYDROGEL DRESSING 90 GM TUBE TP SCH (08:52)
[2019-12-15] MEDS: CARVEDILOL 12.5 MG TABLET GT SCH ×2 (08:58→17:00)
[2019-12-15 09:17] LABS: MAGNESIUM 1.8 mg/dL (1.8-2.4); PHOSPHORUS 2.4 mg/dL (2.5-4.9); POTASSIUM 3.6 mmol/L (3.5-5.1)
[2019-12-15 09:52] LABS: BAND % (MANUAL) 1 % (0.0-5.0); EOSINOPHILS % (MANUAL) 3 % (0-4); LYMPHOCYTES % (MANUAL) 27 % (16-48); MONOCYTES % (MANUAL) 6 % (0-11.0); NEUTROPHILS % (MANUAL) 63 (42-76)
--- NOTE | 2019-12-15 09:53 | NUR ---
WELL CONTROL INSTRUCTOR NOTES PT SEEN AND EXAMINED BY DR. CARDONA, AWARE OF LATEST H/H, PER MD BARRAGAN TO INSERT MIDLINE.
[2019-12-15 11:24] LABS: BASOPHILS % (AUTO) 0.2 % (0.0-2.0); EOSINOPHILS % (AUTO) 2.5 % (0.0-6.0); HEMATOCRIT 23 % (39-51); HEMOGLOBIN 7.5 g/dL (13.5-17.5); LYMPHOCYTES # (AUTO) 1.9 /CMM (0.8-4.8); LYMPHOCYTES % (AUTO) 37.6 % (20.0-44.0); MEAN CORPUSCULAR HGB CONC 33 g/dl (31.0-36.0); MEAN CORPUSCULAR VOLUME 90 fL (80-96); MONOCYTES # (AUTO) 0.4 /CMM (0.1-1.30); MONOCYTES % (AUTO) 7.2 % (2.0-12.0); NEUTROPHILS # (AUTO) 2.6 /CMM (1.8-8.9); NEUTROPHILS % (AUTO) 52.5 % (43.0-81.0); PLATELET COUNT (AUTO) 58 /CMM (150-450); RED BLOOD CELL COUNT(AUTO) 2.57 MIL/uL (4.5-6.0)
--- NOTE | 2019-12-15 13:00 | NUR ---
OFFSET SECOND PRESS OPERATOR NOTES PT IN BED, RESTING, NO SIGN OF PAIN OR DISTRESS, TOLERATING GT FEEDING WELL, REPOSITIONED FOR COMFORT, F/C DRAINING WELL.
[2019-12-15 14:43] LABS: CALCIUM, SERUM 7.8 mg/dL (8.5-10.1); POTASSIUM 3.7 mmol/L (3.5-5.1)
[2019-12-15 14:56] LABS: ALBUMIN 1.9 g/dL (3.4-5.0); BILIRUBIN,TOTAL 0.2 mg/dL (0.2-1.0); MAGNESIUM 1.8 mg/dL (1.8-2.4); PHOSPHORUS 2.3 mg/dL (2.5-4.9); TOTAL PROTEIN, SERUM 6.8 g/dL (6.4-8.2)
[2019-12-15] MEDS ORDERED: NEUTRA PHOS 1 POWD.PACKET GT ONE (16:00)
[2019-12-15] MEDS: JEVITY 1.2 CAL 1,000 ML BOTTLE GT PRN (17:12)
[2019-12-15] MEDS: IV 1/2NS 1000 ML 1,000 ML IV PRN (17:22)
--- NOTE | 2019-12-15 18:07 | NUR ---
FOOTBALL PAD REPAIRER NOTES PT IN BED, RESTING, NO SIGN OF PAIN OR DISTRESS, GT FEEDING TOLERATING WELL, IV FLUIDS INFUSING WELL, MIDLINE INSERTED ORDERED, REPOSITIONED FOR COMFORT, KEPT WARM AND COMFORTABLE.
--- NOTE | 2019-12-15 19:30 | NUR ---
telegraph repeater installer opening note received patient in bed. a/ox1, very confused, Libyan speaking. on oxygen 2l/min via nasal cannula, respirations are even and unlabored. no s/s sob noted. no s/s pain at this time. external tele monitor reads sinus rhythm hr 65. in no apparent distress. iv access CASSY midline running 1/2NS@75ml/hr. newberry catheter is present draining to gravity, gtube is present, no residual, flushed with no resistance, running feeding nepro @45ml/hr. on bilateral wrist restraint, no redness or swelling noted, 2 finger breaths of room between skin and restraint. call light within reach.w ill continue to monitor.
[2019-12-15 20:00] VITALS: BP 117/69
[2019-12-15 21:12] VITALS: BP 117/69
[2019-12-15] MEDS: VALPROIC ACID 250 MG/5 ML UDC GT SCH (22:49)
[2019-12-16 00:46] VITALS: BP 147/82
[2019-12-16 04:00] VITALS: BP 108/77
[2019-12-16] MEDS: PANTOPRAZOLE 40 MG TABLET.DR PO SCH (06:44)
[2019-12-16] MEDS: IV 1/2NS 1000 ML 1,000 ML IV PRN (06:54)
--- NOTE | 2019-12-16 07:08 | NUR ---
television engineer closing note patient in bed. a/ox1,confused. remains on oxygen 2l/min via nasal cannula,no resp distress. no s/s pain. external tele monitor reads sinus rhythm. no distress. iv access maintained CASSY midline running 1/2NS@75ml/hr. newberry catheter is present draining to gravity urine is yellow. gtube is maintained running feeding nepro @45ml/hr. remains on bilateral wrist restraint, 2 finger breaths of room between skin and restraint, no redness noted. call light within reach. will endorse to next shift
--- NOTE | 2019-12-16 07:30 | NUR ---
SOLE SPLITTER NOTES PATIENT RECEIVED IN BED RESTING COMFORTABLY. ALERT AND ORIENTED X 1, HUNGARIAN SPEAKING. ON NASAL CANNULA 2L, WITH NO SIGNS RESPIRATORY DISTRESS, NO SOB NOTED, AND WITH EVEN NON-LABORED BREATHING. ON BRACELET MAKER NOVELTY, SINUS RHYTHM 98. BILATERAL SOFT WRIST RESTRAINTS IN PLACE, WITH ADEQUATE SKIN CIRCULATION, WITH 2 FINGER SPACE, AND SKIN CIRCULATION WITHIN NORMAL LIMITS. PATIENT G-TUBE FEEDING INTACT, AND INFUSING JEVITY 1.2 @ 45ml/hr. PACK CATHETER IN PLACE WITH YELLOW URINE OUTPUT FLOWING BY GRAVITY. PATIENT PRESENTS WITH NO PAIN OR DISCOMFORT AT THIS TIME. SAFETY PRECAUTIONS IMPLEMENTED WITH BED LOCKED, BED IN THE LOWEST POSITION, BED ALARM ON, BILATERAL SIDE RAILS UP, AND CALL LIGHT WITHIN EASY REACH OF PATIENT. WILL CONTINUE TO MONITOR PATIENT.
[2019-12-16 08:18] VITALS: BP 113/57
[2019-12-16] MEDS: MEROPENEM 500 MG in IV NS 0.9% 100 ML IV SCH ×2 (08:27→21:22)
[2019-12-16] MEDS: DOXYCYCLINE HYCLATE (100 MG) 100 MG TABLET PO SCH ×2 (08:34→22:04)
[2019-12-16] MEDS: CARVEDILOL 12.5 MG TABLET GT SCH ×2 (08:34→17:00)
[2019-12-16] MEDS: ASCORBIC ACID 500 MG TABLET GT SCH (08:34)
[2019-12-16 08:35] LABS: CREATININE 0.9 mg/dL (0.6-1.3); PHOSPHORUS 2.4 mg/dL (2.5-4.9); POTASSIUM 3.6 mmol/L (3.5-5.1)
[2019-12-16] MEDS: HYDROGEL DRESSING 90 GM TUBE TP SCH (08:35)
[2019-12-16 08:54] LABS: BASOPHILS % (AUTO) 0.6 % (0.0-2.0); EOSINOPHILS % (AUTO) 3.1 % (0.0-6.0); HEMATOCRIT 22 % (39-51); HEMOGLOBIN 7.1 g/dL (13.5-17.5); LYMPHOCYTES # (AUTO) 1.5 /CMM (0.8-4.8); LYMPHOCYTES % (AUTO) 26.5 % (20.0-44.0); MEAN CORPUSCULAR HGB CONC 33 g/dl (31.0-36.0); MEAN CORPUSCULAR VOLUME 89 fL (80-96); MONOCYTES # (AUTO) 0.3 /CMM (0.1-1.30); MONOCYTES % (AUTO) 5.2 % (2.0-12.0); NEUTROPHILS # (AUTO) 3.5 /CMM (1.8-8.9); NEUTROPHILS % (AUTO) 64.6 % (43.0-81.0); PLATELET COUNT (AUTO) 67 /CMM (150-450); RED BLOOD CELL COUNT(AUTO) 2.41 MIL/uL (4.5-6.0); WHITE BLOOD COUNT (AUTO) 5.5 K/uL (4.3-11.0)
--- NOTE | 2019-12-16 13:05 | NUR ---
CLINICAL ACCOUNT LIAISON NOTES INFORMED HOSPITALIST HARLEEN CARDONA ABOUT PATIENT'S HEMOGLOBIN LEVEL OF 7.1. AT THIS TIME NO NEW ORDERS AND WILL CONTINUE TO MONITOR PATIENT.
[2019-12-16] MEDS ORDERED: NEUTRA PHOS 1 POWD.PACKET GT ONE (14:00)
[2019-12-16 14:04] LABS: BAND % (MANUAL) 1 % (0.0-5.0); EOSINOPHILS % (MANUAL) 1 % (0-4); LYMPHOCYTES % (MANUAL) 29 % (16-48); MONOCYTES % (MANUAL) 6 % (0-11.0); NEUTROPHILS % (MANUAL) 63 (42-76)
[2019-12-16 15:07] LABS: *SPE A/G RATIO 0.5 (0.7-1.7); *SPE ALPHA-1-GLOBULIN 0.3 g/dL (0.0-0.4); *SPE ALPHA-2-GLOBULIN 0.8 g/dL (0.4-1.0); *SPE BETA GLOBULIN 0.9 g/dL (0.7-1.3); *SPE GLOBULIN, TOTAL 3.9 g/dL (2.2-3.9); *SPE M-SPIKE Not Observed g/dL (Not Observed); *SPEGAMMA GLOBULIN 1.9 g/dL (0.4-1.8)
[2019-12-16 16:00] VITALS: BP 86/50
[2019-12-16] MEDS: JEVITY 1.2 CAL 1,000 ML BOTTLE GT PRN (17:00)
[2019-12-16 18:15] LABS: HEMOGLOBIN 7.4 g/dL (13.5-17.5)
--- NOTE | 2019-12-16 18:32 | NUR ---
SUCCESS COACH NOTES INFORMED HARLEEN CARDONA HOSPITALIST ABOUT PATIENTS HEMOGLOBIN LEVEL OF 7.4 AND HCT 22. NO NEW ORDERS AT THIS TIME. INFORMED THAT GI NEEDS TO SEE PATIENT AND DR OLEARY WAS INFORMED BUT HAS NOT BEEN SEEN OR EXAMINED THE PATIENT. AT THIS TIME WILL CONTINUE TO MONITOR PATIENT AND ENDORSE PLAN OF CARE TO UPCOMING RN.
--- NOTE | 2019-12-16 18:36 | NUR ---
MODELING MANAGER NOTES PATIENT IN BED RESTING COMFORTABLY. ALERT AND ORIENTED X 1, TURKMEN SPEAKING WITH RAMBLING SPEECH. ON NASAL CANNULA 2L, WITH NO SIGNS RESPIRATORY DISTRESS, NO SOB NOTED, AND WITH EVEN NON-LABORED BREATHING. ON DEPUTY GRAND JURY, SINUS RHYTHM/SINUS BRADYCARDIA 54. BILATERAL SOFT WRIST RESTRAINTS IN PLACE, WITH ADEQUATE SKIN CIRCULATION, WITH 2 FINGER SPACE, AND SKIN CIRCULATION WITHIN NORMAL LIMITS. PATIENT G-TUBE FEEDING INTACT, AND INFUSING JEVITY 1.2 @ 50ml/hr WITH NO RESIDUAL NOTED. PACK CATHETER IN PLACE WITH YELLOW URINE OUTPUT FLOWING BY GRAVITY. PATIENT PRESENTS WITH NO PAIN OR DISCOMFORT AT THIS TIME. SAFETY PRECAUTIONS IMPLEMENTED WITH BED LOCKED, BED IN THE LOWEST POSITION, BED ALARM ON, BILATERAL SIDE RAILS UP, AND CALL LIGHT WITHIN EASY REACH OF PATIENT. WILL ENDORSE PLAN OF CARE TO UPCOMING NURSE.
--- NOTE | 2019-12-16 19:26 | NUR ---
ENDLESS TRACK VEHICLE MECHANIC: RECEIVED PATIENT Patient transferred to [facility] by bed. A/O x1 to self only, with confusing. CASSY ,midline intact. Abdomen presence of Gtube in place. Dressing changed to sacral PI. Fall; Skin; Aspiration precaution maintained.
[2019-12-16 20:10] VITALS: BP 107/61
[2019-12-16] MEDS: VALPROIC ACID 250 MG/5 ML UDC GT SCH (22:05)
[2019-12-17 00:15] VITALS: BP 97/59
[2019-12-17] MEDS: IV 1/2NS 1000 ML 1,000 ML IV PRN (02:35)
[2019-12-17 05:49] VITALS: BP 100/62
--- NOTE | 2019-12-17 06:14 | NUR ---
GRAPHIC ARTS INSTRUCTOR: END OF SHIFT REPORT Patient in bed, awake with confusion, still attempting to pull out tubing, bilateral soft wrist restraint in place, monitor for circulation. IVF maintained, Gtube feeding at 50ml/hr at goal rate, tolerating well. Sinus Rhythm in the Tele monitor. IV abx as scheduled, afebrile. Plan for continue abx for 6 more days. H/H low, no active bleeding, GI following. Will endorse to oncoming RN.
[2019-12-17 06:56] LABS: BASOPHILS % (AUTO) 0.2 % (0.0-2.0); EOSINOPHILS % (AUTO) 3.2 % (0.0-6.0); HEMATOCRIT 22 % (39-51); HEMOGLOBIN 7.2 g/dL (13.5-17.5); LYMPHOCYTES % (AUTO) 27.5 % (20.0-44.0); MEAN CORPUSCULAR HGB CONC 33 g/dl (31.0-36.0); MEAN CORPUSCULAR VOLUME 89 fL (80-96); MONOCYTES # (AUTO) 0.4 /CMM (0.1-1.30); MONOCYTES % (AUTO) 5.7 % (2.0-12.0); NEUTROPHILS # (AUTO) 4.5 /CMM (1.8-8.9); NEUTROPHILS % (AUTO) 63.4 % (43.0-81.0); PLATELET COUNT (AUTO) 80 /CMM (150-450); RED BLOOD CELL COUNT(AUTO) 2.43 MIL/uL (4.5-6.0); WHITE BLOOD COUNT (AUTO) 7.2 K/uL (4.3-11.0)
[2019-12-17 07:07] LABS: CALCIUM, SERUM 7.7 mg/dL (8.5-10.1); CREATININE 0.9 mg/dL (0.6-1.3); PHOSPHORUS 2.9 mg/dL (2.5-4.9); POTASSIUM 3.4 mmol/L (3.5-5.1)
--- NOTE | 2019-12-17 07:30 | NUR ---
CLERICAL GRADER OPENING NOTES Received patient with no acute distress. In bed, alert and oriented x1 with confusion, Greenlandic speaking. on oxygen @ 2LPM via nasal cannula, respirations are even and easy, with no sob noted. No s/s pain at this time. external tele monitor reads sinus rhythm hr 68. in no apparent distress. IV access CASSY midline intact and infusing well. newberry catheter is present draining to gravity, gtube is present, no residual, flushed with no resistance, running feeding nepro @45ml/hr. On bilateral wrist restraint, no redness or swelling noted, 2 finger breaths of room between skin and restraint. Call light within reach.w ill continue to monitor
[2019-12-17 08:00] VITALS: BP_SYST 127; BP_DIAS 56; BP_DIAS 65
[2019-12-17] MEDS: DOXYCYCLINE HYCLATE (100 MG) 100 MG TABLET PO SCH ×2 (08:03→21:06)
[2019-12-17] MEDS: ASCORBIC ACID 500 MG TABLET GT SCH (08:03)
[2019-12-17] MEDS: CARVEDILOL 12.5 MG TABLET GT SCH ×2 (08:05→16:42)
[2019-12-17] MEDS: MEROPENEM 500 MG in IV NS 0.9% 100 ML IV SCH ×2 (08:15→19:17)
[2019-12-17] MEDS: PANTOPRAZOLE 40 MG/PACK PACK GT SCH (08:15)
[2019-12-17] MEDS: HYDROGEL DRESSING 90 GM TUBE TP SCH (08:16)
[2019-12-17] MEDS: POTASSIUM CHLORIDE 20 MEQ TAB.PRT.SR PO SCH ×2 (10:51→12:01)
[2019-12-17 12:00] VITALS: BP 105/53
[2019-12-17 16:13] VITALS: BP 108/57
[2019-12-17 17:43] LABS: *SPE A/G RATIO 0.5 (0.7-1.7); *SPE ALBUMIN 2.4 g/dL (2.9-4.4); *SPE ALPHA-1-GLOBULIN 0.3 g/dL (0.0-0.4); *SPE ALPHA-2-GLOBULIN 0.9 g/dL (0.4-1.0); *SPE GLOBULIN, TOTAL 4.4 g/dL (2.2-3.9); *SPE M-SPIKE Not Observed g/dL (Not Observed); *SPEGAMMA GLOBULIN 2.3 g/dL (0.4-1.8)
--- NOTE | 2019-12-17 18:37 | NUR ---
REGENERATOR OPERATOR CLOSING NOTES Patient in bed, awake and oriented x1 to self, with confusion, still attempting to pull out tubing, bilateral soft wrist restraint in place, monitor for circulation. Skin intact. IVF maintained, Gtube feeding of Jevity 1.2 at 50ml/hr at goal rate, tolerating well. Sinus Rhythm in the Tele monitor with heart rate at 80s. All due meds given as ordered, afebrile. Safety precaution maintained and observed. call light left within reach. will endorse to next shift.
[2019-12-17 20:00] VITALS: BP 96/53
[2019-12-17] MEDS: VALPROIC ACID 250 MG/5 ML UDC GT SCH (21:06)
--- NOTE | 2019-12-17 21:27 | NUR ---
RN notes Called lab to follow up on H&H. PEr lab, lab draw will be endorsed to production supervisor off shift.
[2019-12-18] MEDS: JEVITY 1.2 CAL 1,000 ML BOTTLE GT PRN ×2 (01:34→21:22)
[2019-12-18 04:00] VITALS: BP 96/58
--- NOTE | 2019-12-18 06:24 | NUR ---
Rn closing notes No acute changes overnight. Breathing even and unlabored while on 2L of 02 via NC. No acute distress noted. A/O x1 with confusion and agitation noted at times. Nickerson catheter patent and intact, draining yellow clear output. Bilateral soft wrist restraints in placed. Tube feeding running via gtube. romulo well with minimal gastric residual. CASSY midline patent without complications noted at site. Bed alarm on. Bed in lowest position. Call light within reach. All needs rendered. Kept clean and dry. Endorsed to AM shift.
[2019-12-18 06:44] LABS: BASOPHILS % (AUTO) 0.5 % (0.0-2.0); EOSINOPHILS % (AUTO) 6.2 % (0.0-6.0); HEMATOCRIT 23 % (39-51); HEMOGLOBIN 7.6 g/dL (13.5-17.5); LYMPHOCYTES # (AUTO) 2.1 /CMM (0.8-4.8); LYMPHOCYTES % (AUTO) 29.1 % (20.0-44.0); MEAN CORPUSCULAR HGB CONC 33 g/dl (31.0-36.0); MEAN CORPUSCULAR VOLUME 89 fL (80-96); MONOCYTES # (AUTO) 0.5 /CMM (0.1-1.30); MONOCYTES % (AUTO) 6.4 % (2.0-12.0); NEUTROPHILS # (AUTO) 4.2 /CMM (1.8-8.9); NEUTROPHILS % (AUTO) 57.8 % (43.0-81.0); PLATELET COUNT (AUTO) 111 /CMM (150-450); RED BLOOD CELL COUNT(AUTO) 2.57 MIL/uL (4.5-6.0); WHITE BLOOD COUNT (AUTO) 7.2 K/uL (4.3-11.0)
[2019-12-18 06:52] LABS: CALCIUM, SERUM 8.4 mg/dL (8.5-10.1); POTASSIUM 3.8 mmol/L (3.5-5.1)
--- NOTE | 2019-12-18 07:30 | NUR ---
SENIOR FRONT END ENGINEER OPENING NOTES Received patient in bed with no acute distress. Alert and oriented x1 with confusion, English speaking. on oxygen @ 2LPM via nasal cannula, respirations are even and easy, with no sob noted. No s/s pain at this time. external tele monitor reads NSR with HR at 60s. IV access CASSY midline intact and infusing well. newberry catheter is present draining to gravity, gtube is present, no residual, flushed with no resistance, running feeding nepro @45ml/hr. On bilateral soft wrist restraint, no redness or skin problms noted, 2 finger breaths of room between skin and restraint. Call light within reach. Will continue to monitor.
[2019-12-18 07:37] LABS: D-DIMER 2.56 mg/L(FEU (0.17-0.50)
[2019-12-18 08:00] VITALS: BP 98/52
[2019-12-18] MEDS: MEROPENEM 500 MG in IV NS 0.9% 100 ML IV SCH ×2 (08:18→20:37)
[2019-12-18] MEDS: CARVEDILOL 12.5 MG TABLET GT SCH ×2 (08:35→17:00)
[2019-12-18] MEDS: ASCORBIC ACID 500 MG TABLET GT SCH (08:35)
[2019-12-18] MEDS: DOXYCYCLINE HYCLATE (100 MG) 100 MG TABLET PO SCH ×2 (08:35→20:37)
[2019-12-18] MEDS: PANTOPRAZOLE 40 MG/PACK PACK GT SCH (08:36)
[2019-12-18] MEDS: HYDROGEL DRESSING 90 GM TUBE TP SCH (08:36)
[2019-12-18 12:00] VITALS: BP 102/59
[2019-12-18 16:00] VITALS: BP_SYST 101; BP_SYST 102; BP_DIAS 57; BP_DIAS 59
[2019-12-18 18:15] LABS: HEMOGLOBIN 7.7 g/dL (13.5-17.5)
--- NOTE | 2019-12-18 18:17 | NUR ---
HI LO DRIVER CLOSING NOTES Patient in bed, awake and oriented x1 to self, with confusion, still attempting to pull out tubing, bilateral soft wrist restraint in place, monitored for circulation IVF maintained, Gtube feeding of Jevity 1.2 at 50ml/hr at goal rate, tolerating well. Head of bed kept elevated for aspiration precaution. All due meds given as ordered, afebrile. Safety precaution maintained and observed. call light left within reach. Will endorse to next shift for CARLITA. Addendum: 12/18/19 at 1900 by CHRISTAL KINGSLEY RN APPLIED ABDOMINAL BINDER TO PREVENT PT FROM PULLING G-TUBE. WILL ENDORSE TO NEXT SHIFT.
[2019-12-18 20:00] VITALS: BP 104/64
--- NOTE | 2019-12-18 20:50 | NUR ---
RN OPENING NOTES Received the client in bed. Client is confused and unable to follow simple commands. Clietn is bilateral wrist restraints, cap refill is appropriate, skin is intact. G tube feeding noted. The exhibits no s/s of distress nor pain at this time. Safety mechanisms place at this time. will continue to monitor for changes.
[2019-12-18] MEDS: VALPROIC ACID 250 MG/5 ML UDC GT SCH (21:18)
--- NOTE | 2019-12-19 | NUR ---
client remains stable at this time. no change of condition. no s/s of distress nor pain. Client remains on soft wrist restraints, skin intact, capillary refill within 3 secs
[2019-12-19 04:00] VITALS: BP 100/60
[2019-12-19 06:53] LABS: BASOPHILS % (AUTO) 0.4 % (0.0-2.0); EOSINOPHILS % (AUTO) 3.4 % (0.0-6.0); HEMATOCRIT 21 % (39-51); HEMOGLOBIN 7.1 g/dL (13.5-17.5); LYMPHOCYTES # (AUTO) 1.5 /CMM (0.8-4.8); LYMPHOCYTES % (AUTO) 29.5 % (20.0-44.0); MEAN CORPUSCULAR HGB CONC 33 g/dl (31.0-36.0); MEAN CORPUSCULAR VOLUME 89 fL (80-96); MONOCYTES # (AUTO) 0.4 /CMM (0.1-1.30); NEUTROPHILS # (AUTO) 3.1 /CMM (1.8-8.9); NEUTROPHILS % (AUTO) 59.7 % (43.0-81.0); PLATELET COUNT (AUTO) 82 /CMM (150-450); RED BLOOD CELL COUNT(AUTO) 2.37 MIL/uL (4.5-6.0); WHITE BLOOD COUNT (AUTO) 5.2 K/uL (4.3-11.0)
--- NOTE | 2019-12-19 07:19 | NUR ---
MS RN OPENING NOTES RECEIVED PATIENT IN BED, CONFUSED. PATIENT WITH SOFT WRIST RESTRAINS AT THIS TIME. ON OXYGEN THERAPY 2 LPM VIA NASAL CANNULA; BREATHING IS EVEN AND UNLABORED AT THIS TIME. CASSY MIDLINE PRESENT AND INTACT. G-TUBE PRESENT AND JEVITY IS RUNNING AT 50 MLS/HR. PACK CATH DRAINING CLEAR YELLOW URINE. SAFETY PRECAUTIONS IN PLACE; BED IN LOW POSITION AND LOCKED, RAILS UP X2, CALL LIGHT WITHIN REACH. WILL CONTINUE TO MONITOR.
[2019-12-19 08:03] VITALS: BP 98/50
[2019-12-19] MEDS: ASCORBIC ACID 500 MG TABLET GT SCH (08:16)
[2019-12-19] MEDS: DOXYCYCLINE HYCLATE (100 MG) 100 MG TABLET PO SCH ×2 (08:16→21:21)
[2019-12-19] MEDS: PANTOPRAZOLE 40 MG/PACK PACK GT SCH (08:16)
[2019-12-19] MEDS: MEROPENEM 500 MG in IV NS 0.9% 100 ML IV SCH ×2 (08:16→19:25)
[2019-12-19] MEDS: CARVEDILOL 12.5 MG TABLET GT SCH ×2 (08:17→16:31)
[2019-12-19] MEDS: HYDROGEL DRESSING 90 GM TUBE TP SCH (08:17)
[2019-12-19 08:29] LABS: CALCIUM, SERUM 7.9 mg/dL (8.5-10.1); CREATININE 0.9 mg/dL (0.6-1.3); POTASSIUM 3.9 mmol/L (3.5-5.1)
[2019-12-19 16:23] VITALS: BP 118/61
[2019-12-19] MEDS: JEVITY 1.2 CAL 1,000 ML BOTTLE GT PRN (17:20)
--- NOTE | 2019-12-19 18:01 | NUR ---
CALLED @[phone]. RN WILL CALL BACK AFTER GETTING CONTRAST CONSENT. PLEASE CALL EXTENSION [phone] WHEN PT IS READY FOR SCAN.
--- NOTE | 2019-12-19 18:43 | NUR ---
MS RN CLOSING NOTES PATIENT REMAINS IN BED, CONFUSED. PATIENT WITH SOFT WRIST RESTRAINS DURING SHIFT; GETTING AGITATED AND AGGRESSIVE WITHOUT THEM. ON OXYGEN THERAPY 2 LPM VIA NASAL CANNULA; BREATHING IS EVEN AND UNLABORED. CASSY MIDLINE PRESENT AND INTACT. G-TUBE PRESENT AND JEVITY 1.2 IS RUNNING AT 50 MLS/HR. PACK CATH DRAINING CLEAR YELLOW URINE WITH 780 OUTPUT DURING THE SHIFT. ALL NEEDS ATTENDED TO DURING THE DAY. SAFETY PRECAUTIONS IN PLACE; BED IN LOW POSITION AND LOCKED, RAILS UP X2, CALL LIGHT WITHIN REACH. WILL ENDORSE TO SENIOR SYSTEMS ADMINISTRATOR NURSE.
[2019-12-19 20:00] VITALS: BP 115/67
--- NOTE | 2019-12-19 20:07 | NUR ---
MS RN OPENING NOTES RECEIVED PATIENT IN BED, AWAKE, CONFUSED, O2 @ 2LPM VIA NASAL CANNULA, UNLABORED BREATHING, NO SIGNS OF RESPIRATORY DISTRESS, WITH SOFT RESTRAINTS ON BUE, CASSY MIDLINE TKO 3 ML/HR, GT FEEDING JEVITEY @ 50ML/HR, PACK CATH ATTACHED WITH YELLOWISH COLORED URINE, SIDE RAILS UP X2, WILL MONITOR PATIENT WHOLE SHIFT.
[2019-12-19] MEDS: VALPROIC ACID 250 MG/5 ML UDC GT SCH (21:21)
[2019-12-19] MEDS ORDERED: IOHEXOL-300 100 ML VIAL IV ONE (22:06)
[2019-12-19] MEDS ORDERED: CT SWABBABLE VALVE TRANS SET 1 EA INFUS.SET MC ONE (22:06)
[2019-12-19] MEDS ORDERED: IV NS 0.9% 250 ML IV ONE (22:06)
--- NOTE | 2019-12-19 22:07 | NUR ---
PATIENT TRANSPORTED TO RADIOLOGY FOR CT ABDOMEN/PELVIS WITH CONTRAST. AND CT CHEST WITHOUT CONTRAST.
--- NOTE | 2019-12-19 22:15 | NUR ---
EMANI FROM RADIOLOGY CALLED AND INFORMED THAT PATIENT REFUSED THE CT SCAN AND BECAME COMBATIVE. TOLD HER TO BRING THE PATIENT BACK TO THE UNIT.
--- NOTE | 2019-12-19 22:24 | NUR ---
PATIENT ARRIVED FROM RADIOLOGY AND RESTLESS.
--- NOTE | 2019-12-19 22:31 | NUR ---
TOOK PT FOR CT EXAM @2200. PT UNCOOPERATIVE AND COMBATIVE. PT TRIED LEAVING BED MULTIPLE TIMES. RN IS AWARE.
--- NOTE | 2019-12-19 22:50 | NUR ---
INFORMED DR. TILLMAN REGARDING PATIENT'S REFUSAL OF CT SCAN AND BECAME COMBATIVE ONCE HE IS IN RADIOLOGY FOR THE PROCEDURE. ALSO INFORMED DR. TILLMAN PATIENT'S Hgb- 8.0 and Hct- 24.
--- NOTE | 2019-12-19 22:52 | NUR ---
INFORMED DR. DUCKWORTH REGARDING PATIENT'S REFUSAL TO COOPERATIVE FOR THE CT SCAN. PATIENT ALSO BECAME COMBATIVE ONCE HE IS ON RADIOLOGY.
[2019-12-20 04:00] VITALS: BP 113/62
--- NOTE | 2019-12-20 06:45 | NUR ---
MS GROUP DIRECTOR EXPERIENCE CLOSING NOTES ENDORSED PATIENT IN BED, AWAKE, CONFUSED, O2 @ 2LPM VIA NASAL CANNULA, UNLABORED BREATHING, NO SIGNS OF RESPIRATORY DISTRESS, WITH SOFT RESTRAINTS ON BUE, CASSY MIDLINE TKO 3 ML/HR, NO REDNESS OR INFILTRATION NOTED, GT FEEDING JEVITEY @ 50ML/HR INFUSING WELL, FLUSHED GT TUBE BEFORE AND AFTER GIVING MEDS, RESIDUAL DUE CHECK BEFORE GIVING, PACK CATH ATTACHED WITH YELLOWISH COLORED URINE, SIDE RAILS UP X2, DUE MEDS GIVEN, PATIENT WAS NOT RESTLESS WHOLE TIME WHEN HE WENT BACK TO THE UNIT FROM RADIOLOGY.
--- NOTE | 2019-12-20 07:15 | NUR ---
M/S RN OPENING NOTES RECEIVED PT ON BED, A/OX1, ON BILATERAL WRIST SOFT RESTRAINT DUE TO COMBATIVE BEHAVIOR, ASLEEP AT THIS TIME, EASILY AROUSABLE. RESPIRATION EVEN AND NON LABORED WITH NO ACUTE RESPIRATORY DISTRESS, ON O2 AT 2PM VIA N/C, HOB ELEVATED. ABD SOFT AND NON DISTENDED WITH ACTIVE BOWEL SOUNDS, ON FC WITH YELLOW URINE OUTPUT, G-TUBE DRESSING CLEAN AND INTACT, NO RESIDUAL NOTED, POSITIVE PLACEMENT VIA AUSCULTATION, ON JEVITY 1.2 @ 50 ML/HR. NO S/SX OF PAIN, FLACC-0. SKIN WARM TO TOUCH AND DRY. IV SITE AT LEFT UPPER ARM, PATENT IN FLUSHING, NO S/SX OF INFILTRATION. BED IN LOW LOCKED POSITION, SRX2 UP FOR SAFETY, NEAR NURSES STATION. WILL CONTINUE TO EVALUATE CARE
[2019-12-20 07:28] LABS: CALCIUM, SERUM 8.4 mg/dL (8.5-10.1); CREATININE 0.9 mg/dL (0.6-1.3); POTASSIUM 4.4 mmol/L (3.5-5.1)
[2019-12-20 07:53] LABS: BASOPHILS % (AUTO) 0.5 % (0.0-2.0); EOSINOPHILS % (AUTO) 2.4 % (0.0-6.0); HEMATOCRIT 23 % (39-51); HEMOGLOBIN 7.5 g/dL (13.5-17.5); LYMPHOCYTES # (AUTO) 1.5 /CMM (0.8-4.8); LYMPHOCYTES % (AUTO) 34.2 % (20.0-44.0); MEAN CORPUSCULAR HGB CONC 33 g/dl (31.0-36.0); MEAN CORPUSCULAR VOLUME 90 fL (80-96); MONOCYTES # (AUTO) 0.4 /CMM (0.1-1.30); MONOCYTES % (AUTO) 8.6 % (2.0-12.0); NEUTROPHILS # (AUTO) 2.5 /CMM (1.8-8.9); NEUTROPHILS % (AUTO) 54.3 % (43.0-81.0); PLATELET COUNT (AUTO) 80 /CMM (150-450); RED BLOOD CELL COUNT(AUTO) 2.52 MIL/uL (4.5-6.0); WHITE BLOOD COUNT (AUTO) 4.5 K/uL (4.3-11.0)
[2019-12-20] MEDS: CARVEDILOL 12.5 MG TABLET GT SCH ×2 (08:06→16:33)
[2019-12-20] MEDS: ASCORBIC ACID 500 MG TABLET GT SCH (08:06)
[2019-12-20] MEDS: MEROPENEM 500 MG in IV NS 0.9% 100 ML IV SCH ×2 (08:06→20:28)
[2019-12-20] MEDS: DOXYCYCLINE HYCLATE (100 MG) 100 MG TABLET PO SCH ×2 (08:06→20:28)
[2019-12-20] MEDS: PANTOPRAZOLE 40 MG/PACK PACK GT SCH (08:06)
[2019-12-20] MEDS: HYDROGEL DRESSING 90 GM TUBE TP SCH (08:09)
[2019-12-20 08:17] VITALS: BP 117/69
--- NOTE | 2019-12-20 09:18 | NUR ---
M/S RN NOTES PT SEEN AND EVALUATED BY HARLEEN CARDONA NP. NO NEW ORDER AT THIS TIME. REPORTED CT SCAN NOT DONE DUE TO COMBATIVE BEHAVIOR, AND AWARE
--- NOTE | 2019-12-20 10:13 | NUR ---
M/S RN NOTES CALLED RADIOLOGY - TALKED TO SHAI RE: UNSUCCESSFUL CT SCAN DONE 12/18. PT NEEDS TO BE SEDATED TO DO THE CT, OFF TF. HOSPITALIST BRENDAN NOTIFIED. WAITING FOR RESPONSE FOR ADVISE
--- NOTE | 2019-12-20 10:38 | NUR ---
M/S RN NOTES NEW ORDER OBTAINED FROM HARLEEN CARDONA - ATIVAN 1MG IV ONCE PRIOR TO CT SCAN ORDERED RELATED TO COMBATIVENESS, CLIMBING OUT OF BED, KICKING, BITING FROM ATTEMPT SCAN 12/18. ORDER READ BACK NOTED AND CARRIED OUT. CALLED RADIOLOGY - TALKED TO JODIE, WANTED TO CALL BACK AND INFORM MARK. WILL COORDINATE TO THE RADIOLOGY STAFF.
[2019-12-20] MEDS ORDERED: LORAZEPAM INJ 2 MG/ML VIAL IV ONE (11:00)
[2019-12-20] MEDS ORDERED: IOHEXOL-300 100 ML VIAL IV ONE (11:11)
[2019-12-20] MEDS ORDERED: CT SWABBABLE VALVE TRANS SET 1 EA INFUS.SET MC ONE (11:11)
[2019-12-20] MEDS ORDERED: IV NS 0.9% 250 ML IV ONE (11:11)
[2019-12-20] MEDS: JEVITY 1.2 CAL 1,000 ML BOTTLE GT PRN (11:16)
--- NOTE | 2019-12-20 11:16 | NUR ---
M/S RN NOTES PT PICKED UP BY BRIGIT[facility] FOR CT SCAN. PT IN CALM BEHAVIOR, ASLEEP BUT EASILY AROUSABLE.
--- NOTE | 2019-12-20 11:47 | NUR ---
M/S RN NOTES PT CAME BACK FROM CT SCAN. SLEEPING BUT EASILY AROUSABLE. REPOSITIONED TO RIGHT. BILATERAL SOFT RESTRAINT IN PLACE, GOOD CIRCULATION. WILL CONT TO MONITOR
[2019-12-20 16:11] VITALS: BP 130/80
--- NOTE | 2019-12-20 18:37 | NUR ---
M/S RN CLOSING NOTES PT ASLEEP, EASILY AROUSABLE, DOSING ON AND OFF AT TIMES THROUGHOUT THE SHIFT. CT SCAN DONE TODAY, RESULT IN. ON O2 AT 2LPM VIA N/C, LILIA WELL. NO PRESENCE OF ACUTE RESPIRATORY DISTRESS. FLACC-0. NO NEW OPEN SKIN BREAKDOWN, OFFLOAD BLE, TURNED Q2H. BM TODAY SOFT BROWN, 1L TOTAL URINE OUTPUT YELLOW COLOR WITHOUT SEDIMENTS. IV SITE PATENT IN FLUSHING ON L UPPER ARM MIDLINE. GTF LILIA WELL, 5 ML RESIDUAL, KEPT HOB ELEVATED WITH ASPIRATION PRECAUTION. ALL FAMILY CONCERN ATTENDED. BED IN LOW LOCKED POSITION, SRX2 UP FOR SAFETY. ENDORSED CARE TO NEXT SHIFT
[2019-12-20 20:00] VITALS: BP 99/61
--- NOTE | 2019-12-20 20:00 | NUR ---
RN Opening note Received pt in bed. asleep but easily arousable. pt confused. Breathing even and unlabored on 2L of 02 via NC. 02 saturation at 100%. No distress or discomfort noted. No s/s of symptoms of pain. bilateral soft wrist restraint noted. skin checked. skin intact. Abdominal binder on. GTF patent. on jevity at 50ml/hr . tolerating well. 5ml residual noted. CASSY midline noted. Dressing clean and intact.F/C noted. urine clear and yellow . No odor noted. HOB elevated. SRx2 up. All needs rendered. Kept clean and dry. Will continue to monitor.
[2019-12-20] MEDS: VALPROIC ACID 250 MG/5 ML UDC GT SCH (21:50)
[2019-12-21 04:00] VITALS: BP 129/68
[2019-12-21] MEDS: JEVITY 1.2 CAL 1,000 ML BOTTLE GT PRN (05:25)
--- NOTE | 2019-12-21 06:28 | NUR ---
RN closing note Resident in bed, asleep but easily arousable. Breathing even and unlabored with no acute distress noted. On 2L of 02 via NC, 02 saturation 98%. tolerating well. No facial grimacing noted. CASSY midline patent. No signs of infiltration noted. Gtube patent , gtf infusing well. 0ml residual. F/C in place. Yellow clear urine noted , 1000ml output and 1 BM. Repositioned every 2 hours. HOB elevated. Call lights within reach. bed in lowest position. Remains on bilateral soft wrist restraint. Skin WNL. skin intact. Will continue to monitor. Will endorse to AM shift for continuity of care.
[2019-12-21 06:45] LABS: BASOPHILS % (AUTO) 0.7 % (0.0-2.0); EOSINOPHILS % (AUTO) 2.7 % (0.0-6.0); HEMATOCRIT 27 % (39-51); HEMOGLOBIN 8.9 g/dL (13.5-17.5); LYMPHOCYTES # (AUTO) 1.5 /CMM (0.8-4.8); LYMPHOCYTES % (AUTO) 27.9 % (20.0-44.0); MEAN CORPUSCULAR HGB CONC 33 g/dl (31.0-36.0); MEAN CORPUSCULAR VOLUME 90 fL (80-96); MONOCYTES # (AUTO) 0.4 /CMM (0.1-1.30); NEUTROPHILS # (AUTO) 3.2 /CMM (1.8-8.9); NEUTROPHILS % (AUTO) 61.7 % (43.0-81.0); PLATELET COUNT (AUTO) 119 /CMM (150-450); RED BLOOD CELL COUNT(AUTO) 2.99 MIL/uL (4.5-6.0); WHITE BLOOD COUNT (AUTO) 5.2 K/uL (4.3-11.0)
--- NOTE | 2019-12-21 07:39 | NUR ---
MARIZA/QUAHOGGER OPENING NOTES RECEIVED PT ON BED, A/OX1, ON BILATERAL WRIST SOFT RESTRAINT DUE TO COMBATIVE BEHAVIOR, ASLEEP AT THIS TIME, EASILY AROUSABLE. RESPIRATION EVEN AND NON LABORED WITH NO ACUTE RESPIRATORY DISTRESS NOTED. PT IS ON O2 AT 2PM VIA N/C, HOB ELEVATED. G-TUBE DRESSING CLEAN AND INTACT, NO RESIDUAL NOTED, POSITIVE PLACEMENT VIA AUSCULTATION, ON JEVITY 1.2 @ 50 ML/HR. IV SITE AT LEFT UPPER ARM MIDLINE TKO IS , RUNNING, FLUSHING AND INTACT AND NO S/SX OF INFILTRATION. BED IS IN LOW LOCKED POSITION, SRX2 UP . SAFETY MEASUREMENTS ARE IMPLEMENTED PER HOSPITAL POLICY.WILL CONTINUE TO MONITOR.
[2019-12-21] MEDS: MEROPENEM 500 MG in IV NS 0.9% 100 ML IV SCH (07:47)
[2019-12-21 08:00] VITALS: BP 111/62
[2019-12-21 08:18] LABS: CALCIUM, SERUM 8.7 mg/dL (8.5-10.1); CREATININE 0.9 mg/dL (0.6-1.3); POTASSIUM 4.2 mmol/L (3.5-5.1)
[2019-12-21] MEDS: DOXYCYCLINE HYCLATE (100 MG) 100 MG TABLET PO SCH (08:56)
[2019-12-21] MEDS: ASCORBIC ACID 500 MG TABLET GT SCH (08:56)
[2019-12-21 08:57] VITALS: BP 111/62
[2019-12-21] MEDS: CARVEDILOL 12.5 MG TABLET GT SCH (08:57)
[2019-12-21] MEDS: HYDROGEL DRESSING 90 GM TUBE TP SCH (08:58)
[2019-12-21] MEDS ORDERED: PROSOURCE / PROSTAT (PYXIS) 30 ML UDC GT SCH (09:00)
[2019-12-21] MEDS: PANTOPRAZOLE 40 MG/PACK PACK GT SCH (09:15)
[2019-12-21] MEDS ORDERED: DOXY100T2 PO (12:12)
[2019-12-21] MEDS ORDERED: MERO500P IV (12:12)
--- NOTE | 2019-12-21 14:30 | NUR ---
MARIZA RN NOTES GAVE REPORT TO [facility] TO RUNET BECAUSE DOTTY WAS AT LUNCH . PT VS WNL. PT IS 2 L SAT OF 98%. LEFT MIDLINE, PACK, AND PEG TUBE IN PLACE. PT WAS DC IN STABLE CONDITION.
== END 2019-12-21 15:00 | DRG 720 ==
LOC: ER 23:03 → ICU 12-11 00:51 → TELE1 12-14 08:34 → TELE 12-14 17:57 → TELE1 12-16 19:41 → MEDSG1 12-17 22:23
PROVIDERS: ADMIT Nurse Practitioner Acute Care; ATTEND Nurse Practitioner Acute Care
PROC: 05HY33Z Insertion of Infusion Device into Upper Vein, Percutaneous Approach (ICD-10-PCS; principal; 2019-12-15)
DX: A41.9 Sepsis, unspecified organism (principal); R65.20 Severe sepsis without septic shock; E43 Unspecified severe protein-calorie malnutrition; E87.6 Hypokalemia; E87.0 Hyperosmolality and hypernatremia; G92 Toxic encephalopathy; K74.60 Unspecified cirrhosis of liver; R18.8 Other ascites; N17.0 Acute kidney failure with tubular necrosis; N39.0 Urinary tract infection, site not specified; E86.0 Dehydration; D63.8 Anemia in other chronic diseases classified elsewhere; E83.39 Other disorders of phosphorus metabolism; E86.1 Hypovolemia; F03.90 Unspecified dementia, unspecified severity, without behavioral disturbance, psychotic disturbance, mood disturbance, and anxiety; D73.1 Hypersplenism; R64 Cachexia; K80.20 Calculus of gallbladder without cholecystitis without obstruction; Z86.73 Personal history of transient ischemic attack (TIA), and cerebral infarction without residual deficits; K21.0 Gastro-esophageal reflux disease with esophagitis; R40.2142 Coma scale, eyes open, spontaneous, at arrival to emergency department; R40.2342 Coma scale, best motor response, flexion withdrawal, at arrival to emergency department; R40.2212 Coma scale, best verbal response, none, at arrival to emergency department; N40.1 Benign prostatic hyperplasia with lower urinary tract symptoms; D69.59 Other secondary thrombocytopenia; E88.09 Other disorders of plasma-protein metabolism, not elsewhere classified; Z85.118 Personal history of other malignant neoplasm of bronchus and lung; Z85.038 Personal history of other malignant neoplasm of large intestine; Z86.74 Personal history of sudden cardiac arrest; Z93.1 Gastrostomy status; L89.154 Pressure ulcer of sacral region, stage 4; L89.616 Pressure-induced deep tissue damage of right heel; Z68.1 Body mass index [BMI] 19.9 or less, adult; K44.9 Diaphragmatic hernia without obstruction or gangrene; B96.1 Klebsiella pneumoniae [K. pneumoniae] as the cause of diseases classified elsewhere; J18.0 Bronchopneumonia, unspecified organism; Z16.12 Extended spectrum beta lactamase (ESBL) resistance; K62.89 Other specified diseases of anus and rectum; K63.89 Other specified diseases of intestine; I85.11 Secondary esophageal varices with bleeding; J21.9 Acute bronchiolitis, unspecified; E87.2 Acidosis; F41.9 Anxiety disorder, unspecified; D68.9 Coagulation defect, unspecified; D61.818 Other pancytopenia; I10 Essential (primary) hypertension; K76.6 Portal hypertension; Z87.19 Personal history of other diseases of the digestive system
CPT/HCPCS: 36415; 71045-TC; 71250-TC; 80048-TC; 80053-TC; 80061-TC; 80076-TC; 80202-TC; 81000-TC; 82248-TC; 82272-TC; 82378; 82550-TC; 82570-TC; 82728-TC; 83540-TC; 83605-TC; 83735-TC; 83880; 83970; 84100-TC; 84155; 84155-TC; 84165; 84300-TC; 84443-TC; 84484-TC; 85025-TC; 85027-TC; 85396; 85730-TC; 86850-TC; 86921-TC; 87040-TC; 87081-TC; 87086-TC; 87186-TC; 92526; 92611-TC; 93307-TC; A6248; G0378; J2060; J2185; J2543; J3370; J3430; J3475; J3490; J7030; J7040; J7050; J7060; Q9963; Q9967; U0003-CS

== ENCOUNTER 2020-08-21 00:06 | Emergency (ER) | payer MEDICAID ==
[~2020-08-21] VITALS: Ht 167.6 cm; Wt 53.5 kg
[~2020-08-21 00:06] MED LIST: ASCO-352 GT; CARV12.52 GT; DOXY100T2 PO; HALO2TAB2 GT; LACT-96 GT; LOSA50TA39 GT; MERO500P IV; MULT9LIQ6 GT; ONDA4TAB5 GT; PANT40TA2 GT; VALP250S22 GT
--- NOTE | 2020-08-21 00:10 | NUR ---
BIBRA FROM SNF WITH C/C OF NAUSEA AND VOMITING X1 AND ALTERED MENTAL STATUS, BREATHING EVEN AND UNLABORED PT IS OPEN EYES AND CONFUSED, YELLING AT PAIN, CONTRACTED ON LOWER EXTREMITIES, UPPER EXTREMITIES IS RIGID, HOOKED TO MONITOR AND SPOX WILL CONT TO MONITOR
--- NOTE | 2020-08-21 00:20 | NUR ---
SPD TECH AT BEDSIDE BLOOD DRAW DONE
[2020-08-21] MEDS ORDERED: ONDANSETRON HCL/PF 4 MG/2 ML VIAL IVP ONE (00:30)
[2020-08-21 00:48] LABS: BASOPHILS % (AUTO) 0.2 % (0.0-2.0); EOSINOPHILS % (AUTO) 0.2 % (0.0-6.0); HEMATOCRIT 36 % (39-51); HEMOGLOBIN 12.1 g/dL (13.5-17.5); LYMPHOCYTES # (AUTO) 1.4 /CMM (0.8-4.8); LYMPHOCYTES % (AUTO) 12.1 % (20.0-44.0); MEAN CORPUSCULAR HGB CONC 33 g/dl (31.0-36.0); MEAN CORPUSCULAR VOLUME 85 fL (80-96); MONOCYTES # (AUTO) 0.7 /CMM (0.1-1.30); MONOCYTES % (AUTO) 5.9 % (2.0-12.0); NEUTROPHILS # (AUTO) 9.3 /CMM (1.8-8.9); NEUTROPHILS % (AUTO) 81.6 % (43.0-81.0); PLATELET COUNT (AUTO) 123 /CMM (150-450); RED BLOOD CELL COUNT(AUTO) 4.25 MIL/uL (4.5-6.0); WHITE BLOOD COUNT (AUTO) 11.5 K/uL (4.3-11.0)
[2020-08-21 01:03] LABS: CALCIUM, SERUM 9.6 mg/dL (8.5-10.1); CARBON DIOXIDE 30 mmol/L (21-32); CHLORIDE 102 mmol/L (98-107); CREATININE 1.3 mg/dL (0.6-1.3); GLUCOSE 105 mg/dL (74-106); SODIUM SERUM 144 mmol/L (136-145); UREA NITROGEN, BLOOD 33 mg/dL (7-18)
[2020-08-21 01:04] LABS: BILIRUBIN,URINE NEGATIVE (NEGATIVE); COLOR,URINE YELLOW (YELLOW); LEUKOCYTE ESTERASE ,URINE NEGATIVE (NEGATIVE); NITRITE, URINE NEGATIVE (NEGATIVE); UGLUCOSE NEGATIVE (NEGATIVE); UROBILINOGEN,URINE 0.2 EU/dL (0.2)
[2020-08-21] MEDS ORDERED: ONDANSETRON HCL/PF 4 MG/2 ML VIAL ONE (01:08)
[2020-08-21 01:46] LABS: BACTERIA,URINE Few /HPF (None Seen); RBC,URINE 0-2 /HPF (0-2); SQUAMOUS EPITHELIAL CELL,UR Few /HPF (None Seen); WBC,URINE 21-50 /HPF (0-3)
[2020-08-21 01:47] LABS: PROTEIN,URINE 30 mg/dl (NEGATIVE)
[2020-08-21] MEDS ORDERED: NITR100C PO (02:06)
--- NOTE | 2020-08-21 02:19 | NUR ---
[facility] CALLED FOR TRANSPORT. TRIP# [id number]
[2020-08-21 02:25] LABS: BILIRUBIN,URINE NEGATIVE (NEGATIVE); COLOR,URINE YELLOW (YELLOW); LEUKOCYTE ESTERASE ,URINE NEGATIVE (NEGATIVE); NITRITE, URINE NEGATIVE (NEGATIVE); PROTEIN,URINE 30 mg/dl (NEGATIVE); UGLUCOSE NEGATIVE (NEGATIVE); UROBILINOGEN,URINE 0.2 EU/dL (0.2)
--- NOTE | 2020-08-21 02:30 | NUR ---
REPORT GIVEN TO MS FAVIAN RAI OF [facility] FOR CONTINUITY OF CARE
[2020-08-21 02:36] LABS: BACTERIA,URINE Few /HPF (None Seen); SQUAMOUS EPITHELIAL CELL,UR Few /HPF (None Seen)
--- NOTE | 2020-08-21 02:54 | NUR ---
[facility] ETA [phone]
[2020-08-21 03:29] VITALS: BP 125/80
--- NOTE | 2020-08-21 03:29 | NUR ---
EMT ARRIVED TO [facility] PT TO BE TRANSFER TO [facility], PT IS ON ROOM AIR STILL A/O XO OPEN EYES NON VERBAL,V/S CHECKED AND RECORDED SPO2 98% VIA ROOM AIR, DISCHARGE PACKET GIVE TO EMT, TOGETHER WITH LAB RESULTS AND X RAY RESULTS, SAFELY TRANSFER FROM [facility] TO [facility] ON ROUTE TO [facility]
== END 2020-08-21 03:36 ==
LOC: ER 00:06
DX: N39.0 Urinary tract infection, site not specified (principal); I10 Essential (primary) hypertension; K21.9 Gastro-esophageal reflux disease without esophagitis; F03.90 Unspecified dementia, unspecified severity, without behavioral disturbance, psychotic disturbance, mood disturbance, and anxiety; N40.0 Benign prostatic hyperplasia without lower urinary tract symptoms; Z86.73 Personal history of transient ischemic attack (TIA), and cerebral infarction without residual deficits; F41.9 Anxiety disorder, unspecified; Z79.899 Other long term (current) drug therapy
CPT/HCPCS: 36415; 71045; 80048; 81001 ×2; 84484; 85025; 87086; 93005; 96374; 99285; J2405